=== PATIENT | male | born 1955 | race Caucasian/White ===

== ENCOUNTER → 2024-01-30 | Outpatient (CLI) | payer OTHER, MEDICAID, SELFPAY | END | disposition home or self-care (01) | LOC: SLDO 15:31 | PROVIDERS: PCP Family Medicine; Referring Provider Registered Nurse; Visit Provider Registered Nurse | DX: L03.115 Cellulitis of right lower limb (principal) | CPT/HCPCS: 87070; 87077; 87186; 87205 ==

== ENCOUNTER → 2024-02-12 | Outpatient (CLI) | payer OTHER, MEDICAID, SELFPAY | END | disposition home or self-care (01) | PROVIDERS: PCP Family Medicine; Referring Provider Registered Nurse; Visit Provider Student in an Organized Health Care Education/Training Program | DX: S91.104A Unspecified open wound of right lesser toe(s) without damage to nail, initial encounter (principal); X58.XXXA Exposure to other specified factors, initial encounter; L97.512 Non-pressure chronic ulcer of other part of right foot with fat layer exposed; I10 Essential (primary) hypertension; I73.9 Peripheral vascular disease, unspecified | CPT/HCPCS: 11042; 97597; 99213; A9270; G0463 ==

== ENCOUNTER → 2024-02-13 | Outpatient (CLI) | payer OTHER, MEDICAID, SELFPAY | END | disposition home or self-care (01) | LOC: SLDO 10:58 | PROVIDERS: Referring Provider Student in an Organized Health Care Education/Training Program; Visit Provider Student in an Organized Health Care Education/Training Program | DX: I70.235 Atherosclerosis of native arteries of right leg with ulceration of other part of foot (principal) | CPT/HCPCS: 87070; 87075; 87077; 87186; 87205 ==

== ENCOUNTER → 2024-02-20 | Outpatient (CLI) | payer OTHER, MEDICAID, SELFPAY | END | disposition home or self-care (01) | PROVIDERS: PCP Family Medicine; Referring Provider Family Medicine; Visit Provider Student in an Organized Health Care Education/Training Program | DX: S91.104A Unspecified open wound of right lesser toe(s) without damage to nail, initial encounter (principal); X58.XXXA Exposure to other specified factors, initial encounter; L97.512 Non-pressure chronic ulcer of other part of right foot with fat layer exposed; I10 Essential (primary) hypertension; I73.9 Peripheral vascular disease, unspecified | CPT/HCPCS: 11042; A9270 ==

== ENCOUNTER 2024-03-18 18:50 | Inpatient (IN) | payer OTHER, MEDICAID, MEDICARE, SELFPAY ==
[2024-03-18 20:00] VITALS: BP 144/69; PULSE 96; RESP 20; TEMP 36.8; O2SAT 96; BMI 21.7
--- NOTE | 2024-03-18 20:08 | XR_ITS ---
Examination: Foot, right, 3 views Technique: AP, oblique, lateral views foot, 3 views Date and time of exam: March 18, 20272014 hours INDICATIONS: Nonhealing wounds involving the toes several weeks FINDINGS: Advanced osteoarthritis first metatarsophalangeal joint No fracture No amrit cortical bone destruction Soft tissue swelling dorsum left foot IMPRESSION: No amrit cortical bone destruction, however, MRI foot without contrast follow up would best assess for early osteomyelitis as well as soft tissue infection
--- NOTE | 2024-03-18 20:10 | PD.EDRME ---
Rapid Medical Screening Exam RME Arrival date/time: 03/18/24 18:50 68-year-old male reports with complaints of wound check of right foot Chief Complaint: Wound Recheck / Suture Removal Time Seen by Provider: 03/18/24 19:06 Vital signs: Vital Signs Temperature 98.2 F 03/18/24 20:00 Pulse Rate 96 03/18/24 20:00 Respiratory Rate 20 03/18/24 20:00 Blood Pressure 144/69 H 03/18/24 20:00 Pulse Oximetry (%) 96 03/18/24 20:00 Oxygen Delivery Method Room Air 03/18/24 20:00
[2024-03-18 21:23] LABS: Basophils % (Auto) 0 % (0-2.5); Eosinophils # (Auto) 0.2 Thou/mm3 (0.0-0.5); Eosinophils % (Auto) 2 % (0-10); Hematocrit 35.6 % (41.0-53.0); Hemoglobin 12.9 g/dL (13.5-16.0); Immature Granulocytes % (Auto) 0 % (0-0); Immature Granulocytes Auto 0.04 Thou/mm3 (0.00-0.00); Lymphocytes # (Auto) 1.3 Thou/mm3 (1.0-4.8); Lymphocytes % (Auto) 10 % (10-50); Mean Corpuscular HGB Conc 36.2 g/dl (31.0-37.0); Mean Corpuscular Volume 83 fL (80-100); Monocytes # (Auto) 1.2 Thou/mm3 (0.0-0.8); Monocytes % (Auto) 9 % (0-12); Neutrophils # (Auto) 10.3 Thou/mm3 (1.8-7.7); Neutrophils % (Auto) 78 % (37-80); Nucleated Red Blood Cell % 0 /100 WBC (0); Platelet Count 171 Thou/mm3 (140-440); RDW Standard Deviation 39.9 fL (35.1-43.9); White Blood Count 13.2 Thou/mm3 (3.8-10.6)
[2024-03-18 21:41] LABS: Alanine Aminotransferase 45 U/L (10-49); Albumin, Serum 4.1 gm/dL (3.4-4.8); Albumin/Globulin Ratio 1.6 (1.2-2.2); Alkaline Phosphatase 104 U/L (46-116); Anion Gap 8 (7-16); Aspartate Amino Transferase 55 U/L (0-34); BUN/Creatinine Ratio 22 Ratio (12-20); Bilirubin,Total 0.8 mg/dL (0.3-1.2); Blood Urea Nitrogen 28 mg/dL (9-23); Carbon Dioxide 26.8 mMol/L (20.0-31.0); Chloride 86 mMol/L (98-107); Creatinine (Component) 1.3 mg/dL (0.6-1.3); Estimated Creatinine Clearance 45.8 mL/min (>60); Globulin 2.6 gm/dL (2.3-3.5); Glucose 97 mg/dL (74-106); Osmolality,Calculated 249 (275-295); Potassium 3.7 mMol/L (3.4-5.1); Sodium 121 mMol/L (136-145); Total Protein 6.7 gm/dL (5.7-8.2); eGFR 59 See Note
[2024-03-18 22:28] VITALS: BP 108/70; PULSE 91; RESP 17; TEMP 36.8; O2SAT 98
--- NOTE | 2024-03-18 22:32 | EDNOTE_ITS ---
ED Wound/Laceration-RME/HPI General Chief Complaint: Wound Recheck / Suture Removal Stated Complaint: WOUND CHECK Time Seen by Provider: 03/18/24 19:06 Arrival date/time: 03/18/24 18:50 RME / HPI RME / HPI narrative: 03/18/24 18:50 68-year-old male reports with complaints of wound check of right foot ------ Dr. Kingston?s Main ED Evaluation: 68yo male presents to the ED after being sent over by his wound care nurse. Patient states his at-home wound care nurse sent him over for evaluation due to my toes being a different color . Patient states he missed his wound care check last week, reporting today was the first time his wound dressing had been changed in almost 2 weeks. The wound care nurse noticed his toes were turning red at the top of his right foot, so he came in for evaluation. He denies any fever, chills or any other associated symptoms. Denies any alcohol or illicit drug use. No known allergies. Patient notes he's had this right foot wound since December of 2023. Related Data Home Medications ?Medication ?Instructions ?Recorded ?Confirmed albuterol sulfate 2.5 mg/0.5 mL 10 mg inhalation Q4H PRN 07/09/20 07/09/20 solution for nebulization alprazolam 0.5 mg tablet 0.5 mg PO QHS PRN 07/09/20 07/09/20 gabapentin 800 mg tablet 800 mg PO QDAY 07/09/20 07/09/20 losartan 25 mg tablet 25 mg PO QDAY 07/09/20 07/09/20 montelukast 10 mg tablet 10 mg PO QDAY 07/09/20 07/09/20 omeprazole 10 mg capsule,delayed 10 mg PO QDAY 07/09/20 07/09/20 release tizanidine 4 mg capsule 4 mg PO QHS 07/09/20 07/09/20 Allergies Allergy/AdvReac Type Severity Reaction Status Date / Time No Known Allergies Allergy Verified 03/18/24 18:54 Review of Systems Review of Systems Systems Reviewed: All systems reviewed, normal except as documented Narrative Review of Systems: Gen: No fever, no chills, no weight loss EYES: No discharge, no visual changes, no pain HEENT: No ear pain, no congestion, no sore throat PULM: No shortness of breath, no cough, no congestion CV: No chest pain, no dyspnea on exertion, no palpitations GI: No nausea, no vomiting, no diarrhea, no pain, no constipation : No frequency, no urgency, no dysuria Musc/skel: No joint pain, no back pain Skin: No rash. Warm and dry. + toes are a different color Psyc: No hallucinations, no depression Heme/Lymph: No easy bleeding or bruising tendencies Neuro: No weakness, no headache Past Medical History Past Medical History CARDIAC: Negative Congestive Heart Failure RESPIRATORY: Negative Chronic Obstructive Pulmonary Disease (COPD) GENITOURINARY: Negative Renal Disease ENDOCRINE: Negative Diabetes Mellitus Type 1 or Diabetes Mellitus Type 2 Social History SMOKING STATUS: Never smoker ED Exam Narrative Physical exam: GENERAL APPEARANCE: alert and oriented x 4, well-developed, well-nourished, no acute distress VITALS: All vitals were reviewed and the pulse ox is 98% on room air, which is normal according to my interpretation. HEENT: Normocephalic, atraumatic; pupils equal, round, reactive to light; EOMI; mucous membranes pink, moist; oropharynx clear NECK: Supple LUNGS: CTABL; no wheezes, no rales, no rhonchi HEART: Regular rate, regular rhythm; normal S1, S2; no murmurs ABDOMEN: non distended; normal BS; soft, no tenderness, no guarding, no rebound; no masses, no organomegaly, no hernia BACK: no CVA tenderness EXTREMITIES: atraumatic; no edema; cellulitis to the right foot; necrosis to the distal portion of the right 2nd, 3rd, and 5th toes with proximal erythema, swelling, and hot to the touch; 2+ pitting edema bilaterally NEUROLOGIC: awake; alert and oriented x4; cranial nerves II-XII grossly intact; no focal sensory or motor deficits PSYCHIATRIC: appropriate mood and affect SKIN: warm, dry; no rashes Course Course Course Narrative: CXR is ordered for determining the etiology of cough. Quality Measures none Orders Category Date Time Status Architectural Technologist STAT Care 03/18/24 22:49 Active Continuous Pulse Oximetry STAT Care 03/18/24 22:49 Active EKG (ED ONLY) *Do not use* NOW Care 03/18/24 22:49 Completed In and Out Catheter X1PRN Care 03/18/24 22:49 Active Insert IV NOW Care 03/18/24 22:49 Active NPO STAT Care 03/18/24 22:49 Active Strict Intake and Output Routine Care 03/18/24 22:49 Ordered EKG (ED Only) Stat Exams 03/18/24 22:49 Ordered US arterial duplex LE RT Stat Exams 03/18/24 22:50 Taken XR chest 1V portable Stat Exams 03/18/24 22:49 Completed XR foot comp RT min 3V Stat Exams 03/18/24 20:08 Completed B-Type Natriuretic Peptide Stat Lab 03/18/24 23:00 Completed Blood Culture (Lab) Stat Lab 03/18/24 23:06 Received CBC Stat Lab 03/18/24 20:57 Completed CMP [Comprehensive Metabolic Panel] Stat Lab 03/18/24 20:57 Completed LDH (Lactate Dehydrogenase) Stat Lab 03/18/24 23:00 Completed Lactate (Lactic Acid) Stat Lab 03/18/24 23:00 Completed Lipase Stat Lab 03/18/24 23:00 Completed Magnesium Stat Lab 03/18/24 23:00 Completed Partial Thromboplastin Time Stat Lab 03/18/24 23:00 Completed Phosphorous Stat Lab 03/18/24 23:00 Completed Procalcitonin Stat Lab 03/18/24 23:00 Completed Prothrombin Time with INR Stat Lab 03/18/24 23:00 Completed Troponin I Stat Lab 03/18/24 23:00 Completed Urinalysis Stat Lab 03/18/24 23:32 Completed Urine Culture Stat Lab 03/18/24 23:33 Received Wound Culture and Gram Stain Stat Lab 03/18/24 23:25 Ordered Doxycycline Inj [Vibramycin Inj] 200 mg Med 03/18/24 22:54 Discontinued Sodium Chloride 0.9% 250 ml [Ns] 250 ml IV X1 Piper/Tazo 3.375 gm [Zosyn] Med 03/18/24 22:49 Discontinued 3.375 gm in 50 ml IV X1 Sodium Chloride 0.9% 1000 ml [Ns] 1,914 ml Med 03/18/24 22:49 Discontinued IV 1,914 mls/hr Vital Signs Vital signs: Vital Signs Temperature 98.2 F 03/18/24 20:00 Pulse Rate 96 03/18/24 20:00 Respiratory Rate 20 03/18/24 20:00 Blood Pressure 144/69 H 03/18/24 20:00 Pulse Oximetry (%) 96 03/18/24 20:00 Oxygen Delivery Method Room Air 03/18/24 20:00 Wound / Laceration MDM Narrative MDM Narrative:: Scribe Attestation: 03/18/24 - Maya Weller am scribing for and in the presence of Dr. Kingston. Patient data External records reviewed:: [facility] previous records (Per chart review, patient has no previous ED visits or admissions to this facility.) Clinical information provided by:: patient Social determinants that could affect healthcare access:: none Patient has the following chronic illnesses:: none How is presenting disease/condition affected by chronic disease/condition?: no chronic disease Evaluation data The following diagnostics were reviewed and interpreted by me:: lab results, radiology exam(s) and EKG tracing(s) Lab and/or radiology exams considered but not ordered:: none Interpretation Summary: WBC count is elevated at 13.2, Sodium is low at 121, BUN is 28, troponin is normal, according to my interpretation. EKG done at 0009, NSR, rate of 96, left axis deviation, no ectopy, Q waves in lead III, avF, V1-V3, no STEMI, according to my interpretation. ----- [facility] Report Signed Patient: PASHA HAMMOND [facility]. Record#: [id number] Birthdate: 1955 Age/Sex: 68 / M Location: [facility] Attending Dr: Ordering Physician: Mykel Rose PA-C Date of Service: 03/18/24 Procedure(s): XR foot comp RT min 3V Accession Number(s): [id number] cc: Geoff Mcdonald MD; Hayden Singh MD; Mykel Rose PA-C~ Examination: Foot, right, 3 views Technique: AP, oblique, lateral views foot, 3 views Date and time of exam: March 18, 2027 2015 hours INDICATIONS: Nonhealing wounds involving the toes several weeks FINDINGS: Advanced osteoarthritis first metatarsophalangeal joint No fracture No amrit cortical bone destruction Soft tissue swelling dorsum left foot IMPRESSION: No amrit cortical bone destruction, however, MRI foot without contrast follow up would best assess for early osteomyelitis as well as soft tissue infection Dictated By: Geoff Mcdonald MD Signed By: <Electronically signed by Geoff Mcdonald MD in OV> 03/18/24 2133 [facility] Report Signed Patient: PASHA HAMMOND [facility]. Record#: [id number] Birthdate: 1955 Age/Sex: 68 / M Location: [facility] Attending Dr: Ordering Physician: Edison Kingston MD Date of Service: 03/18/24 Procedure(s): XR chest 1V portable Accession Number(s): [id number] cc: Geoff Mcdonald MD; Hayden Singh MD; Edison Kingston MD~ Examination: AP chest single view TECHNIQUE: Upright AP portable chest single view March 18, 2024 11:10 PM Comparison January 24, 2012 INDICATIONS: Onset coughing today. FINDINGS: Normal heart size Atelectasis versus mild pneumonia right base obscuring detail right hemidiaphragm Mild elevation right hemidiaphragm Significant osteopenia IMPRESSION: Atelectasis versus early pneumonia right base, clinical correlation advised Dictated By: Geoff Mcdonald MD Signed By: <Electronically signed by Geoff Mcdonald MD in OV> 03/18/24 2353 ------ [facility] Preliminary Report Draft Patient: PASHA HAMMOND [facility]. Record#: [id number] Birthdate: 1955 Age/Sex: 68 / M Location: [facility] Attending Dr: Ordering Physician: Date of Service: Procedure(s): Accession Number(s): cc: ~ Right lower extremity arterial Doppler ultrasound. March 18, 2024 at 2343 hours Clinical history: Diabetic foot infection. No prior study is available for comparison. Findings: The common femoral, proximal, mid and distal superficial femoral and popliteal arteries demonstrate normal triphasic flow pattern, velocities and good color flow. The anterior tibial, posterior tibial, peroneal and dorsalis pedis arteries are also unremarkable. Impression: No hemodynamically significant stenosis in the right lower extremity arteries. Report Electronically Signed By: Hossein Del Rosario 03/19/2024 12:55:12 AM [EST] Medications / Prescriptions Medications or Prescriptions considered but not ordered:: none Medication administrations:: Medication Administration History Discontinued Medications Sodium Chloride (Ns) 1,914 mls @ 1,914 mls/hr 30 ml/kg infuse over 60 min (1914 ml) IV .Q1H ONE Stop: 03/18/24 23:48 Last Infusion: 03/19/24 00:10 Dose: Infused Documented By: Admin: 03/18/24 23:08 Dose: 1,914 mls/hr Documented By: NIXON Piperacillin/Tazobactam/Dextrose (Zosyn) 3.375 gm in 50 mls @ 100 mls/hr IV X1 ONE Stop: 03/18/24 23:18 Last Infusion: 03/18/24 23:56 Dose: Infused Documented By: Admin: 03/18/24 23:26 Dose: 100 mls/hr Documented By: NIXON Doxycycline Hyclate 200 mg/ (Sodium Chloride) 250 mls @ 125 mls/hr IV X1 ONE Stop: 03/19/24 00:53 Last Admin: 03/19/24 00:30 Dose: 125 mls/hr Documented By: NIXON see above Consultations Consultation(s) initiated? (list below): Yes Consultation #1 (Physician, Specialty, Details): Discussed case with [Dr. Esparza, attending Dr. Perera] from Hospitalist service regarding admission. Discussed patients ED course, exam findings, labs, and radiology results. The Hospitalist [agrees] to accept the patient for admission. Time: 00:57 Diagnosis Wound Differential Diagnosis: other (diabetic foot wound, cellulitis, necrotizing fasciitis, arterial insufficiency, ischemic foot) Most likely diagnosis given after review of the tests above:: see below Admission Indicated Admission indicated?: indicated Admission Request Was there a request for admission?: Yes Admission Attestation Admission request attestation: Discussed case with [] from Hospitalist service regarding admission. Discussed patients ED course, exam findings, labs, and radiology results. The Hospitalist [agrees,declines] to accept the patient for admission. Disposition Plan Disposition Plan: Admit Critical Care Time Critical Care Time Critical Care Time: Yes Total Critical Care Time (min.): 40 Attestation: The high probability of sudden, clinically significant deterioration in the patient?s condition required the highest level of my preparedness to intervene urgently. The services I provided to this patient were to treat and/or prevent clinically significant deterioration. Services included the following: chart data review, reviewing nursing notes and/or old charts, documentation time, datastage consultant collaboration regarding findings and treatment options, medication orders and management, direct patient care, vital sign assessments and ordering, interpreting and reviewing diagnostic studies and lab tests. Aggregate critical care time includes only time during which I was engaged in work directly related to the patient?s care, as described above, whether at bedside or elsewhere in the Emergency Department. It did not include time spent performing other reported procedures or the services of residents, students, nurses or physician assistants. Discharge Plan Plan Patient Disposition: Admit Acute Care w/in Hospital Prescriptions/Referrals Prescriptions/Med Rec: No Action alprazolam 0.5 mg tablet 0.5 mg PO QHS PRN gabapentin 800 mg tablet 800 mg PO QDAY tizanidine 4 mg capsule 4 mg PO QHS omeprazole 10 mg capsule,delayed release(DR/EC) 10 mg PO QDAY losartan 25 mg tablet 25 mg PO QDAY montelukast 10 mg tablet 10 mg PO QDAY albuterol sulfate 2.5 mg/0.5 mL solution for nebulization 10 mg inhalation Q4H PRN Referrals: Hayden Singh MD [Primary Care Provider] - In 1 week Problem List Clinical Impression: Diabetic foot infection, Cellulitis Patient/Caregiver Discharge Instructions Print Language: Malian Stand Alone Forms: [facility] Award Info., Patient Portal Info Letter
--- NOTE | 2024-03-18 22:49 | XR_ITS ---
Examination: AP chest single view TECHNIQUE: Upright AP portable chest single view March 18, 2024 11:10 PM Comparison January 24, 2012 INDICATIONS: Onset coughing today. FINDINGS: Normal heart size Atelectasis versus mild pneumonia right base obscuring detail right hemidiaphragm Mild elevation right hemidiaphragm Significant osteopenia IMPRESSION: Atelectasis versus early pneumonia right base, clinical correlation advised
--- NOTE | 2024-03-18 22:50 | XR_ITS ---
Examination: Arterial duplex lower extremity, right lower extremity unilateral Date and time of exam: March 18, 2024 at 2343 hours INDICATIONS: Infection involving the right foot and toes beginning one week ago, diagnoses diabetes Findings: Duplex sonographic imaging of the lower extremity arteries, left using B-mode/Cooney scale imaging and Doppler spectral analysis and color flow. Ankle brachial indices have been recorded. Left common femoral artery demonstrates biphasic flow. Left superficial femoral artery demonstrates monophasic flow. Left popliteal artery demonstrates monophasic flow. Left posterior tibial artery demonstrated monophasic flow. Left ankle/brachial index is 0.78. Impression: Severe peripheral obstructive arterial disease Consider correlation with CT abdominal aorta iliofemoral runoff
[2024-03-18] MEDS: SODIUM CHLORIDE 0.9% 1000 ML 1,914 ML 1914 ML IV (23:08)
[2024-03-18 23:18] LABS: Lactate (Lactic Acid) 1.2 mMol/L (0.4-2.0)
[2024-03-18] MEDS: PIPER/TAZO 3.375 GM 3.375 GM/50 ML BAG IV (23:26)
[2024-03-18 23:35] LABS: INR 0.9 (0.9-1.3); Partial Thromboplastin Time 27.5 Seconds (22.0-36.0); Prothrombin Time 10.4 Seconds (9.0-12.2)
[2024-03-18 23:39] LABS: B-Type Natriuretic Peptide 41 pg/mL (0-100)
[2024-03-18 23:47] LABS: Collection Type, Urine Clean Catch
[2024-03-18 23:49] LABS: Lipase 106 U/L (12-53); Magnesium 1.9 mg/dL (1.6-2.6); Phosphorous 3.7 mg/dL (2.4-5.1); Procalcitonin 0.23 ng/ml (0.0-0.49); Troponin I < 0.020 ng/mL (0.0-0.045)
[2024-03-18 23:54] LABS: Bilirubin,Urine Negative (Negative); Blood,Urine Negative (Negative); Clarity,Urine Clear (Clear/Hazy); Color,Urine Lt-Yellow (Lt Yel-Yel); Glucose, Urine Negative (Negative); Ketones,Urine Negative (Negative); Leukocyte Esterase,Urine Negative (Negative); Nitrite,Urine Negative (Negative); Protein,Urine Negative (Neg - Trace); RBC,Urine 4 /hpf (0-3); Specific Gravity,Urine 1.012 (1.001-1.035); Squamous Epithelial Cell,Urine < 1 /hpf (0-5); Urobilinogen,Urine Negative mg/dL (0.0-1.0); WBC,Urine 4 /hpf (0-5)
--- NOTE | 2024-03-18 23:59 | PC.NURSE ---
Ultrasound currently at bedside.
[2024-03-19] VITALS (9 sets, daily range): BP systolic 114–170; BP diastolic 70–101; PULSE 84–107; RESP 14–20; TEMP 36.3–36.9; O2SAT 95–100; BMI 20.8
--- NOTE | 2024-03-19 | XR_ITS ---
Examination: Venous duplex lower extremity sonogram, bilateral. Date and time of exam: March 19, 2024 0234 hours INDICATIONS: Cellulitis gangrene involving the toes of the right foot one week Technique: Multiple sonographic images of the deep venous system have been obtained. B-mode/2-D grayscale imaging of vascular structures and Doppler spectral analysis (waveforms) and color performed Both legs are examined. Findings: Deep venous systems do not demonstrate abnormal echogenicity. All visualized deep veins exhibit compressibility. All visualized deep veins exhibit augmentation. Impression: Negative for deep vein thrombosis
[2024-03-19 00:07] LABS: LDH (Lactate Dehydrogenase) 213 U/L (120-246)
[2024-03-19] MEDS: DOXYCYCLINE INJ 200 MG in SODIUM CHLORIDE 0.9% 250 ML 250 ML 125 MG IV (00:30)
--- NOTE | 2024-03-19 00:55 | PRELIM_ITS ---
Right lower extremity arterial Doppler ultrasound. March 18, 2024 at 2343 hoursClinical history: Di abetic foot infection.No prior study is available for comparison.Findings:The common femoral, proxima l, mid and distal superficial femoral and popliteal arteries demonstrate normal triphasic flow patter n, velocities and good color flow. The anterior tibial, posterior tibial, peroneal and dorsalis pedi s arteries are also unremarkable.Impression:No hemodynamically significant stenosis in the right lowe r extremity arteries. Report Electronically Signed By: Hossein Del Rosario 03/19/2024 12:55:12 AM [EST]
[2024-03-19 11:36] LABS: Basophils % (Auto) 0 % (0-2.5); Eosinophils # (Auto) 0.3 Thou/mm3 (0.0-0.5); Eosinophils % (Auto) 3 % (0-10); Hematocrit 35.2 % (41.0-53.0); Hemoglobin 12.3 g/dL (13.5-16.0); Immature Granulocytes % (Auto) 0 % (0-0); Immature Granulocytes Auto 0.03 Thou/mm3 (0.00-0.00); Lymphocytes # (Auto) 1.2 Thou/mm3 (1.0-4.8); Lymphocytes % (Auto) 13 % (10-50); Mean Corpuscular HGB Conc 34.9 g/dl (31.0-37.0); Mean Corpuscular Hemoglobin 29.1 pg (25.0-35.0); Mean Corpuscular Volume 83 fL (80-100); Monocytes % (Auto) 12 % (0-12); Neutrophils # (Auto) 6.2 Thou/mm3 (1.8-7.7); Neutrophils % (Auto) 72 % (37-80); Nucleated Red Blood Cell % 0 /100 WBC (0); Platelet Count 142 Thou/mm3 (140-440); RDW Standard Deviation 40.6 fL (35.1-43.9); Red Blood Count 4.23 Miln/mm3 (4.50-5.90); White Blood Count 8.7 Thou/mm3 (3.8-10.6)
--- NOTE | 2024-03-19 11:41 | XR_ITS ---
Examination: CTA abdominal aorta iliofemoral runoff. 2-D sagittal coronal reconstructions. 3-D reconstructions, vascular March 19, 2024 1658 hours INDICATIONS: Right foot nonhealing ulcer redness swelling and pain one month Technique: Multiple CTA images of the abdominal aorta iliofemoral runoff arterial vessels, 2.0 mm slice thickness, post intravenous administration 130 cc [id number] 2-D sagittal coronal reconstructions. 3-D reconstructions, vascular 3-D postprocessing, including vascular maximum intensity projection images, 3-D volume rendering Low dose protocols were performed. One or more of the following dose reduction techniques were used; automated exposure control, adjustment of the mA and/or KV according to patient size, use of iterative reconstruction technique. Findings: No visualized liver or splenic lesion No gallstones No pancreatic or adrenal mass No renal or ureteral calculi, no hydronephrosis No pericecal inflammatory change No bowel obstruction Moderately distended urinary bladder Enhancing anterior left prostate nodule, 10 mm Transverse prostate dimension 4.7 cm Heavy abdominal aortic calcification, no abdominal aortic aneurysm 30% stenosis origin celiac axis 60% stenosis origin left renal artery External iliac common femoral arteries intact 90% plus stenosis mid to distal right superficial femoral artery extending over a distance of 10 cm Additional multiple 90% plus stenoses in the distal right superficial femoral artery Popliteal artery 90% stenosis image 410 Occlusions proximal and mid right anterior tibial artery and no filling right anterior tibial artery distally Multiple high-grade occlusions proximal right posterior tibial and main continuation trunk as well as multiple stenoses high-grade in the mid and distal right posterior tibial artery Heavy calcification left superficial femoral artery, 70% stenosis distal left superficial femoral artery Attenuated left popliteal artery Occlusion proximal left anterior tibial artery short segment Occlusion distal third of the left anterior tibial artery Multiple significant stenoses in the left posterior tibial and main continuation trunk IMPRESSION: Severe occlusive arterial sclerotic disease involving the right superficial femoral artery right anterior tibial posterior tibial arteries as above 70% stenosis distal left superficial femoral artery with multiple occlusions in the left anterior tibial left posterior tibial arteries
[2024-03-19 11:42] LABS: Anion Gap 8 (7-16); BUN/Creatinine Ratio 25 Ratio (12-20); Blood Urea Nitrogen 25 mg/dL (9-23); Calcium 8.6 mg/dL (8.3-10.6); Carbon Dioxide 28.4 mMol/L (20.0-31.0); Chloride 95 mMol/L (98-107); Estimated Creatinine Clearance 59.5 mL/min (>60); Glucose 95 mg/dL (74-106); Osmolality,Calculated 267 (275-295); Potassium 3.5 mMol/L (3.4-5.1); Sodium 131 mMol/L (136-145); eGFR > 60 See Note
[2024-03-19 11:43] LABS: Glucose Estimated Average 103 mg/dL (80-131); Hemoglobin A1C 5.2 % Hgb (4.8-6.0)
[2024-03-19] MEDS: PIPER/TAZO 3.375 GM 50 ML IV ×3 (12:19→22:25)
[2024-03-19] MEDS: DOXYCYCLINE INJ 100 MG in SODIUM CHLORIDE 0.9% (P) 100 ML IV ×2 (13:18→20:58)
--- NOTE | 2024-03-19 17:34 | PD.RESPRO ---
Documentation for date of: 03/19/24 Subjective Subjective Interval history: The patient reported doing well this morning. He reported that his pain has been well-controlled. He denied any lightheadedness, dizziness, chest pain, SOB, abdominal pain, nausea or vomiting, fever or chills. Exam Vital Signs Temp Pulse Resp BP Pulse Ox O2 Del Method 97.5 F 95 14 167/101 H 99 Room Air 03/19/24 15:03 03/19/24 15:03 03/19/24 15:03 03/19/24 15:03 03/19/24 15:03 03/19/24 15:03 Narrative Exam General: Cooperative elderly gentleman, no acute distress, Alert and Oriented x 3 HEENT: Moist mucous membranes, oropharynx clear Neck: Supple, No masses, No JVD CVS: S1S2 Regular rate and rhythm, No murmurs, rubs or gallops Lungs: Clear to auscultation with no accessory use, no wheeze no rhonchi Abd: Soft, NT/ND, +BS, no organomegaly Ext: Right foot under clean dressing, partially able to visualize underlying blackish discoloration of second and third right toe, bilateral dorsalis pedis and posterior tibialis pulses unable to fill Skin: No rash Psych: Appropriate mood and affect Objective Labs 03/20/24 05:01 03/20/24 05:01 Labs: Laboratory Results - last 24 hr 03/18/24 03/18/24 03/18/24 20:57 23:00 23:32 WBC 13.2 H RBC 4.30 L Hgb 12.9 L Hct 35.6 L MCV 83 MCH 30.0 MCHC 36.2 RDW Std Deviation 39.9 Plt Count 171 Neut % (Auto) 78 Lymph % (Auto) 10 [place] % (Auto) 9 Eos % (Auto) 2 Baso % (Auto) 0 Neut # (Auto) 10.3 H Lymph # (Auto) 1.3 [place] # (Auto) 1.2 H Eos # (Auto) 0.2 Baso # (Auto) 0.0 Immature Gran # (Auto) 0.04 H Absolute Nucleated RBC 0.00 Immature Gran % 0 Nucleated RBC % 0 PT 10.4 INR 0.9 APTT 27.5 Sodium 121 L Potassium 3.7 Chloride 86 L Carbon Dioxide 26.8 Anion Gap 8 BUN 28 H Creatinine 1.3 Estim Creat Clear Calc 45.8 L eGFR 59 L BUN/Creatinine Ratio [address] Glucose [address] Glu mg/dL Hemoglobin A1c Calculated Osmolality 249 L Lactic Acid 1.2 Calcium 9.0 Corrected Calcium 9.0 Phosphorus 3.7 Magnesium 1.9 Total Bilirubin 0.8 AST 55 H ALT 45 Alkaline Phosphatase 104 Lactate Dehydrogenase 213 Troponin I < 0.020 B-Natriuretic Peptide 41 Total Protein 6.7 Albumin 4.1 Globulin 2.6 Albumin/Globulin Ratio 1.6 Lipase 106 H Procalcitonin 0.23 Ur Collection Type Clean Catch Urine Color Lt-Yellow Urine Clarity Clear Urine pH 6.0 Ur Specific [place] 1.012 Urine Protein Negative Urine Glucose (UA) Negative Urine Ketones Negative Urine Blood Negative Urine Nitrite Negative Urine Bilirubin Negative Urine Urobilinogen (Auto) Negative Ur Leukocyte Esterase Negative Urine RBC 4 H Urine WBC 4 Ur Squamous Epith Cells < 1 Urine Bacteria None 03/19/24 05:00 WBC 8.7 RBC 4.23 L Hgb 12.3 L Hct 35.2 L MCV 83 MCH 29.1 MCHC 34.9 RDW Std Deviation 40.6 Plt Count 142 Neut % (Auto) 72 Lymph % (Auto) 13 [place] % (Auto) 12 Eos % (Auto) 3 Baso % (Auto) 0 Neut # (Auto) 6.2 Lymph # (Auto) 1.2 [place] # (Auto) 1.0 H Eos # (Auto) 0.3 Baso # (Auto) 0.0 Immature Gran # (Auto) 0.03 H Absolute Nucleated RBC 0.00 Immature Gran % 0 Nucleated RBC % 0 PT INR APTT Sodium 131 L D Potassium 3.5 Chloride 95 L Carbon Dioxide 28.4 Anion Gap 8 BUN 25 H Creatinine 1.0 Estim Creat Clear Calc 59.5 L eGFR > 60 BUN/Creatinine Ratio 25 H Glucose [address] Glu mg/dL 103 Hemoglobin A1c 5.2 Calculated Osmolality 267 L Lactic Acid Calcium 8.6 Corrected Calcium Phosphorus Magnesium Total Bilirubin AST ALT Alkaline Phosphatase Lactate Dehydrogenase Troponin I B-Natriuretic Peptide Total Protein Albumin Globulin Albumin/Globulin Ratio Lipase Procalcitonin Ur Collection Type Urine Color Urine Clarity Urine pH Ur Specific [place] Urine Protein Urine Glucose (UA) Urine Ketones Urine Blood Urine Nitrite Urine Bilirubin Urine Urobilinogen (Auto) Ur Leukocyte Esterase Urine RBC Urine WBC Ur Squamous Epith Cells Urine Bacteria Quality Measures Quality Measures none Advance care planning discussed with:: patient Assessment & Plan Assessment Current Active Medications: Generic Name Dose Route Start Last Admin Trade Name Evin PRN Reason Stop Dose Admin Acetaminophen 650 mg 03/19/24 16:54 Acetaminophen 325 Mg Tablet PO 04/18/24 16:53 Q6H PRN Fever >100.4 Acetaminophen 650 mg 03/19/24 16:54 Acetaminophen 325 Mg Tablet PO 04/18/24 16:53 Q6H PRN PAIN SCALE 1-3 (mild Hydrocodone Bitart/Acetaminophen 1 tab 03/19/24 16:54 Hydrocodone/Apap 5/325 Tablet PO 03/24/24 16:53 Q4HR PRN PAIN SCALE 4-6 (Moderate Doxycycline Hyclate 100 mg/ 100 mls @ 100 mls/hr 03/19/24 09:30 03/19/24 14:18 Sodium Chloride IV 03/26/24 09:29 Infused BID ALEX Infusion Piperacillin/Tazobactam/Dextrose 50 mls @ 12.5 mls/hr 03/19/24 14:00 03/19/24 15:33 Zosyn IV 03/26/24 13:59 12.5 mls/hr Q8HR ALEX Administration Plan The patient is a 68-year-old gentleman with significant past medical history of hypertension and anxiety presented to ED on 03/18/2024 with chief complaint of worsening darkening of right second and third toe was found to have dry gangrene of right second and third toe. #Right second and third toe dry gangrene, and #Peripheral neuropathy 2/2 #Severe bilateral lower limb peripheral arterial disease Patient has history of hypertension, has been on losartan, and suspected to have peripheral neuropathy, patient denied any history of diabetes mellitus type 1 or type II Right foot x-ray was significant for no amrit cortical bone destruction, duplex scan lower extremity revealed severe peripheral obstructive disease, And venous duplex was negative for DVT. Abdomen CTA iliofemoral run taken, pending report -Wound care ordered -Surgery consultation done with Dr. Foley, [facility] -Continue with doxycycline and Zosyn 03/18/2024- -started on gabapentin 400 Mg daily at night, home dose 800 Mg daily -[place] 5mg as needed for pain -Follow-up on abdomen CTA iliofemoral run off #Hypoosmolar hypovolemic Hyponatremia, improving Likely 2/2 low PO intake in the setting of underlying condition -Received 2L bolus in the ED -F/u on Na level #Essential hypertension Patient on home medication lisinopril -Started on amlodipine 5 mg daily #Anxiety disorder -Started on home alprazolam 0.5 Mg daily at night as needed -Started on trazodone 100 Mg daily at night Health maintenance: Dispo: Admitted to [facility] for further management of rt 2nd and 3rd toe dry gangrene Diet: Cardiac diet, NPO after midnight DVT prophylaxis: SCD's Code: Full code The patient's management plan was discussed with my attending physician MD Favio Kyle MD, PGY2 Attending Provider Attestation/Addendum I reviewed labs, imaging, EKG, home medications and prior available records. Face to face evaluation was performed by me. I have personally examined the patient and discussed assessment and plan with the IM team. I reviewed the resident note and agree with the plan with exceptions as below. Gangrene of right foot Hyponatremia PAD Peripheral neuropathy Essential hypertension Started IV NS for hyponatremia. Sodium improved. Monitor BMP Continue Zosyn and doxycycline Trend WBC: Downtrending Wound care Obtain CT angio of the lower extremities with abdominal aorta Consulted surgery for possible I&D
[2024-03-19] MEDS: amLODIPine BESYLATE 5 MG TABLET PO (18:10)
[2024-03-19] MEDS: GABAPENTIN 100 MG CAPSULE 400 MG PO (18:10)
[2024-03-19] MEDS: traZODone HCL 50 MG TABLET 100 MG PO (20:58)
[2024-03-19] MEDS: HYDROcodone/APAP 5/325 TABLET 1 TAB PO (21:02)
[2024-03-19] MEDS: ALPRazoLAM 0.25 MG TABLET 0.5 MG PO (22:36)
[2024-03-20] VITALS (15 sets, daily range): BP systolic 91–176; BP diastolic 76–101; PULSE 78–98; RESP 14–98; TEMP 36.1–37.1; O2SAT 96–100
[2024-03-20] MEDS: LOSARTAN POTASSIUM 25 MG TABLET 50 MG PO (00:34)
[2024-03-20] MEDS: HYDROcodone/APAP 5/325 TABLET 1 TAB PO (06:17)
[2024-03-20] MEDS: PIPER/TAZO 3.375 GM 50 ML IV ×3 (06:17→21:47)
[2024-03-20 06:20] LABS: Basophils % (Auto) 0 % (0-2.5); Eosinophils # (Auto) 0.2 Thou/mm3 (0.0-0.5); Eosinophils % (Auto) 2 % (0-10); Hematocrit 35.1 % (41.0-53.0); Hemoglobin 12.3 g/dL (13.5-16.0); Immature Granulocytes % (Auto) 0 % (0-0); Immature Granulocytes Auto 0.03 Thou/mm3 (0.00-0.00); Lymphocytes # (Auto) 1.1 Thou/mm3 (1.0-4.8); Lymphocytes % (Auto) 10 % (10-50); Mean Corpuscular Hemoglobin 29.9 pg (25.0-35.0); Mean Corpuscular Volume 85 fL (80-100); Monocytes % (Auto) 9 % (0-12); Neutrophils # (Auto) 9.2 Thou/mm3 (1.8-7.7); Neutrophils % (Auto) 79 % (37-80); Nucleated Red Blood Cell % 0 /100 WBC (0); Platelet Count 141 Thou/mm3 (140-440); RDW Standard Deviation 42.4 fL (35.1-43.9); Red Blood Count 4.12 Miln/mm3 (4.50-5.90); White Blood Count 11.5 Thou/mm3 (3.8-10.6)
[2024-03-20 06:48] LABS: Alanine Aminotransferase 40 U/L (10-49); Albumin, Serum 3.7 gm/dL (3.4-4.8); Albumin/Globulin Ratio 1.5 (1.2-2.2); Alkaline Phosphatase 83 U/L (46-116); Anion Gap 10 (7-16); Aspartate Amino Transferase 43 U/L (0-34); BUN/Creatinine Ratio 19 Ratio (12-20); Bilirubin,Total 1.3 mg/dL (0.3-1.2); Blood Urea Nitrogen 13 mg/dL (9-23); Calcium (Corrected) 9.2 mg/dL (8.5-10.1); Carbon Dioxide 27.3 mMol/L (20.0-31.0); Chloride 95 mMol/L (98-107); Creatinine (Component) 0.7 mg/dL (0.6-1.3); Estimated Creatinine Clearance 81.4 mL/min (>60); Globulin 2.5 gm/dL (2.3-3.5); Glucose 89 mg/dL (74-106); Magnesium 1.6 mg/dL (1.6-2.6); Osmolality,Calculated 263 (275-295); Phosphorous 2.5 mg/dL (2.4-5.1); Potassium 3.7 mMol/L (3.4-5.1); Sodium 132 mMol/L (136-145); Thyroid Stimulating Hormone 1.12 uIU/mL (0.55-4.78); Total Protein 6.2 gm/dL (5.7-8.2); eGFR > 60 See Note
[2024-03-20 07:05] LABS: Cholesterol 142 mg/dL (132-200); HDL Cholesterol 48 mg/dL (40-60); LDL Cholesterol,Calculated 82 mg/dL (0-130); Triglycerides 60 mg/dL (30-150)
[2024-03-20] MEDS: GABAPENTIN 100 MG CAPSULE 400 MG PO (09:09)
[2024-03-20] MEDS: DOXYCYCLINE INJ 100 MG in SODIUM CHLORIDE 0.9% (P) 100 ML IV ×2 (09:10→21:22)
[2024-03-20] MEDS: amLODIPine BESYLATE 5 MG TABLET PO (09:10)
--- NOTE | 2024-03-20 09:49 | ESPR_ITS ---
Documentation for date of: 03/20/24 Subjective Subjective Interval history: Patient was seen at bedside this morning. No overnight events. Patient is abdomen CTA runoff showed severe peripheral artery disease with right lower extremity having occlusion of 90% on the superficial femoral artery as well as the popliteal artery. Spoke with general surgeon was given see the patient today. Exam Vital Signs Temp Pulse Resp BP Pulse Ox O2 Del Method 97.0 F 97 18 136/90 H 100 Room Air 03/20/24 08:00 03/20/24 09:10 03/20/24 08:00 03/20/24 09:10 03/20/24 08:00 03/20/24 08:00 Narrative Exam General: A/O x3, no acute distress, thin Eyes: PERRL, EOMI. Anicteric, vision grossly intact. Ears: No ear pain, no ear discharge, Hearing grossly intact. Nose: No nasal discharge. Mouth/Throat: Moist mucous membranes, no redness, no lesions. Neck: Neck supple, non-tender, no cervical lymphadenopathy. Lungs: Clear BARBARA to auscultation and percussion, No accessory muscle use. Cardio: Normal S1/S2, regular rhythm, no murmurs, no JVD or carotid bruits. Abdomen: Soft, non-tender, no palpable masses, peristalsis present, no guarding or rebound. Extremities: Symmetrical, no significant deformities, no peripheral edema , non-tender, peripheral pulses presents. R foot wrapped in clean dressing. Skin: No rashes, no lesions, warm to touch. Neuro: No focal neurological deficits. motor and sensory intact Psych: Cooperative, appropriate mood and effect. Constitutional Comments: General: A/O x3, no acute distress, well-nourished, well-developed Eyes: PERRL, EOMI. Anicteric, vision grossly intact. Ears: No ear pain, no ear discharge, Hearing grossly intact. Nose: No nasal discharge. Mouth/Throat: Moist mucous membranes, no redness, no lesions. Neck: Neck supple, non-tender, no cervical lymphadenopathy. Lungs: Clear BARBARA to auscultation and percussion, No accessory muscle use. Cardio: Normal S1/S2, regular rhythm, no murmurs, no JVD or carotid bruits. Abdomen: Soft, non-tender, no palpable masses, peristalsis present, no guarding or rebound. Extremities: Symmetrical, no significant deformities, no peripheral edema , non-tender, peripheral pulses presents. Skin: No rashes, no lesions, warm to touch. Neuro: No focal neurological deficits. Psych: Cooperative, appropriate mood and effect. Objective Labs 03/20/24 05:01 03/20/24 05:01 Labs: Laboratory Results - last 24 hr 03/19/24 03/20/24 05:00 05:01 WBC 8.7 11.5 H RBC 4.23 L 4.12 L Hgb 12.3 L 12.3 L Hct 35.2 L 35.1 L MCV 83 85 MCH 29.1 29.9 MCHC 34.9 35.0 RDW Std Deviation 40.6 42.4 Plt Count 142 141 Neut % (Auto) 72 79 Lymph % (Auto) 13 10 [place] % (Auto) 12 9 Eos % (Auto) 3 2 Baso % (Auto) 0 0 Neut # (Auto) 6.2 9.2 H Lymph # (Auto) 1.2 1.1 [place] # (Auto) 1.0 H 1.0 H Eos # (Auto) 0.3 0.2 Baso # (Auto) 0.0 0.0 Immature Gran # (Auto) 0.03 H 0.03 H Absolute Nucleated RBC 0.00 0.00 Immature Gran % 0 0 Nucleated RBC % 0 0 Sodium 131 L D 132 L Potassium 3.5 3.7 Chloride 95 L 95 L Carbon Dioxide 28.4 27.3 Anion Gap 8 10 BUN 25 H 13 Creatinine 1.0 0.7 Estim Creat Clear Calc 59.5 L 81.4 eGFR > 60 > 60 BUN/Creatinine Ratio 25 H 19 Glucose [address] Glu mg/dL 103 Hemoglobin A1c 5.2 Calculated Osmolality 267 L 263 L Calcium 8.6 9.0 Corrected Calcium 9.2 Phosphorus 2.5 Magnesium 1.6 Total Bilirubin 1.3 H D AST 43 H ALT 40 Alkaline Phosphatase 83 D Total Protein 6.2 Albumin 3.7 Globulin 2.5 Albumin/Globulin Ratio 1.5 Triglycerides 60 Cholesterol 142 LDL Cholesterol, Calc 82 HDL Cholesterol 48 Cholesterol/HDL Ratio 3.0 L TSH 1.12 Quality Measures Quality Measures none Advance care planning discussed with:: patient Assessment & Plan Assessment Current Active Medications: Generic Name Dose Route Start Last Admin Trade Name Freq PRN Reason Stop Dose Admin Acetaminophen 650 mg 03/19/24 16:54 Acetaminophen 325 Mg Tablet PO 04/18/24 16:53 Q6H PRN Fever >100.4 Acetaminophen 650 mg 03/19/24 16:54 Acetaminophen 325 Mg Tablet PO 04/18/24 16:53 Q6H PRN PAIN SCALE 1-3 (mild Hydrocodone Bitart/Acetaminophen 1 tab 03/19/24 16:54 03/20/24 06:17 Hydrocodone/Apap 5/325 Tablet PO 03/24/24 16:53 1 tab Q4HR PRN Administration PAIN SCALE 4-6 (Moderate Alprazolam 0.5 mg 03/19/24 17:57 03/19/24 22:36 Alprazolam 0.25 Mg Tablet PO 03/24/24 20:59 0.5 mg HS PRN Administration Anxiety Amlodipine Besylate 5 mg 03/19/24 18:00 03/20/24 09:10 Amlodipine Besylate 5 Mg Tablet PO 04/18/24 17:59 5 mg QDAY ALEX Administration Gabapentin 400 mg 03/19/24 18:00 03/20/24 09:09 Gabapentin 100 Mg Capsule PO 04/18/24 17:59 400 mg QDAY ALEX Administration Doxycycline Hyclate 100 mg/ 100 mls @ 100 mls/hr 03/19/24 09:30 03/20/24 09:10 Sodium Chloride IV 03/26/24 09:29 100 mls/hr BID ALEX Administration Piperacillin/Tazobactam/Dextrose 50 mls @ 12.5 mls/hr 03/19/24 14:00 03/20/24 06:17 Zosyn IV 03/26/24 13:59 12.5 mls/hr Q8HR ALEX Administration Trazodone HCl 100 mg 03/19/24 21:00 03/19/24 20:58 Trazodone Hcl 50 Mg Tablet PO 04/18/24 20:59 100 mg HS ALEX Administration Plan 68-year-old male with past medical history of hypertension and anxiety was admitted on 03/18/2024 due to right second and third toe dry gangrene. #Right second and third toe dry gangrene likely secondary to #Severe peripheral artery disease #Leukocytosis ? Patient initially came in due to discoloration of his toes. Initial foot x-ray did not show any fractures ?Arterial duplex showed severe PAD ?Abdomen CTA runoff showed severe PAD with 90% stenosis of right femoral as well as popliteal artery stenosis. ? Culture from right foot wound grew GNR's ? Blood cultures have been negative in the first 24 hours ? Patient has leukocytosis of 11.5 today Plan: ? Continue doxycycline and Zosyn [03/18/2024?] ? Official blood cultures pending ? General Surgery consulted, pursue recommendations ? Will continue to monitor #Hypoosmolar hyponatremia ? Patient came in with sodium of 121 ? Received IV fluids in the ER ? Sodium today 132 Plan: ? Will continue to monitor #Normocytic hypochromic anemia ? Hemoglobin on admission was 12.9 and currently 12.3 ? Could be due to hemodilution versus iron deficiency Plan: ?Order ferritin levels ? Will transfuse hemoglobin less than 7 ? Will continue to monitor #Hx of hypertension ? Restart patient's amlodipine 5 mg daily #Hx of anxiety ? Restart patient's trazodone 100 mg at bedtime Disposition: Patient seen in med surg for R 2/3 toe gangrene pending General surgery recs and continue Abx. Diet: NPO GI prophylaxis: not indicated DVT prophylaxis: SCDs Code: Full code Case disclosed with Attending Dr. Hess and My senior Dr. Petersen PGY2. Shreyas Garcia PGY1 Senior Resident Attestation: The patient's CTA abdomen iliofemoral runoff was significant for severe PAD with 90% stenosis of the right femoral as well as popliteal artery stenosis, and culture growing from wound was and GNR's. Dr. Jean general surgeon will be proceeding with amputation of the right second and third toe. We will follow-up on Dr. Jean's recommendations. Will continue the patient on doxycycline and Zosyn for now. I discussed with and supervised the ad operations intern physician involved in the care of this patient. I personally saw and examined the patient and discussed the assessment and plan with the entire medicine team, including my attending. I agree with the assessment and plan as documented above. Favio Petersen MD PGY2 Internal Medicine Attending Provider Attestation/Addendum I reviewed labs, imaging, EKG, home medications and prior available records. Face to face evaluation was performed by me. I have personally examined the patient and discussed assessment and plan with the IM team. I reviewed the resident note and agree with the plan with exceptions as below. Gangrene of right foot Hyponatremia PAD Peripheral neuropathy Essential hypertension Status post IV NS for hyponatremia. Sodium improved. Monitor BMP Continue Zosyn and doxycycline Trend WBC: Downtrending Wound care Obtain CT angio of the lower extremities with abdominal aorta: Showed severe PAD Consulted surgery: Will plan for OR today. Keep the patient n.p.o. possible amputation. Patient is aware of this possibility
[2024-03-20 10:10] LABS: Ferritin 244 ng/mL (10.5-307.3)
--- NOTE | 2024-03-20 15:04 | PD.SURCONS ---
HPI Consult details Consult date: 03/20/24 Reason for consultation narrative: The patient was seen in consultation because of gangrene involving multiple toes right foot History of present illness: History of present illness revealed that the patient has had this problem for a month. He was treated as an outpatient but failed and because of the gangrene he was admitted to the hospital Past Medical History Past Medical History CARDIAC: Negative Cardiac Disorders or Congestive Heart Failure RESPIRATORY: Positive Asthma; Negative Chronic Obstructive Pulmonary Disease (COPD) GENITOURINARY: Negative Renal Disease ENDOCRINE: Negative Diabetes Mellitus Type 1 or Diabetes Mellitus Type 2 HEMATOLOGIC: Negative Sickle Cell Disease Social History SMOKING STATUS: Never smoker Meds Home Medications and Allergies Home Medications ?Medication ?Instructions ?Recorded ?Confirmed ?Type albuterol sulfate 2.5 mg/0.5 mL 10 mg inhalation Q4H PRN Pain 07/09/20 03/19/24 History solution for nebulization alprazolam 0.5 mg tablet 0.5 mg PO QHS PRN Pain, Severe 07/09/20 03/19/24 History gabapentin 800 mg tablet 800 mg PO QDAY 07/09/20 03/19/24 History losartan 25 mg tablet 25 mg PO QDAY 07/09/20 03/19/24 History montelukast 10 mg tablet 10 mg PO QDAY 07/09/20 03/19/24 History hydrocodone 7.5 mg-acetaminophen 7.5 tab PO [id number] PRN Pain 03/19/24 03/19/24 History 325 mg tablet trazodone 100 mg tablet 100 mg ONCE PM 03/19/24 03/19/24 History Allergies Allergy/AdvReac Type Severity Reaction Status Date / Time No Known Allergies Allergy Verified 03/18/24 18:54 Exam Vital Signs Temp Pulse Resp BP Pulse Ox O2 Del Method 98.8 F 96 18 135/89 H 97 Room Air 03/20/24 12:00 03/20/24 12:00 03/20/24 12:00 03/20/24 12:00 03/20/24 12:00 03/20/24 12:00 Narrative Exam Physical examination revealed an elderly gentleman who appears older than his stated age of 68. He is 5 foot 6 inches tall weighing 129 pounds. His vital signs are normal. Routine Extremities Exam Comments: Examination of the foot on both sides showed ischemic changes. On the right side patient had some cellulitis over the dorsal aspect of the right foot. Patient has amrit gangrene of the second and third toes right foot and probably portion of the fifth toe. The fourth toe is spared. The great toe is also showing ischemic changes but no amrit gangrene. Pedal pulses are not palpable on this patient Results Results: Laboratory Laboratory Narrative: Laboratory results are within normal limits Results: Imaging Imaging narrative: Patient had a CTA which showed severe occlusive disease over the peripheral arteries Assessment & Plan Additional Assessment Additional comments: Impression: Gangrene multiple toes right foot Diabetes Advanced peripheral vascular disease Plan Plan: I do not know whether we can save this foot. However minimal we have to do is to amputation of all the toes start with. It is very unlikely but amputated and will heal. But I think getting rid of the gangrene is the first place that continue dressing as an outpatient. Thank you for an opportunity to see this unfortunate gentleman.
[2024-03-20] MEDS: LORazepam 2 MG/ML VIAL 1 MG IVP (15:32)
--- NOTE | 2024-03-20 15:58 | PC.SS ---
Patient is alert/oriented. Patient verified demographics. Patient was admitted for gangrene of right distal foot. Patient is from home and resides at [facility]. Patient resides alone. He is independent with ADL's. Patient has a walker at home. Patient states he needs a wheelchair. Patient states his p.c.p. ordered this and it's pending. Patient states he has been to the o/p wound clinic in the past. His last visit was in January. He was going once a week. He has no transportation. Patient uses [employer] transportation. Patient PCP: Dr. Juan Jose Singh. Last appt. was in November. Patient states his designated decision maker is his friend, Cassidy. Patient will need resources for healthcare options to switch his [employer] to a different managed Medicare in the future. Patient needs [facility] resources as well as transportation assistance. Patient states ideally he nadira like to d/c home with additional help but if he needs it he is open to SNF short term.
--- NOTE | 2024-03-20 17:05 | SUR.PHASEI ---
1705 Patient arrived to recovery resting comfortably in [facility], on oxygen 8L via oxy mask with an oral airway, breathing unlabored, vital signs stable, dressing intact to right foot; wet fluffs, kerlix, silk tape, no bleeding noted, lung sounds clear upon auscultation, bilateral radial pulses present when palpated, report received from Corine MORGAN and Geoff GARCIA
--- NOTE | 2024-03-20 17:06 | PD.SUROPNT ---
Date of Procedure 03/20/24 Pre Op Diagnosis Gangrene of multiple toes right foot Post Op Diagnosis Same Procedure Amputation of the second third and part of the fifth toe on the right foot Findings Patient is found to have the above toes completely gangrenous and therefore amputation was indicated Procedure Description After the patient was brought to the operating room general anesthesia was given. Then the right foot was washed with Betadine solution and draped in a sterile manner. Timeout was performed. Then I approached the 2nd-1st which is completely gangrenous. Retracting the great toe medially a racquet shaped incision was made over the base of the second toe and it was removed by dividing the proximal phalanx with a bone saw. Same thing was performed on the third toe. The fifth toe had gangrenous changes at the tip and I debrided the fifth toe and a partial amputation was performed of the distal phalanx. Then I shaved the necrotic tissue over the right big toe and wound was found to have absolutely no bleeding. Wound was washed with saline solution and dressed with wet-to-dry fluff. Patient tolerated procedure well Anesthesia other Pathology / specimen Other (Amputated second third and part of the fifth toe) Estimated Blood Loss 0 Surgeon Janine Harrison MD Surgical Staff Operation Date: 03/20/24 16:15 <No data on this case meets the specified criteria>
--- NOTE | 2024-03-20 17:55 | SUR.PHASEI ---
1753 Report given to Joann MORGAN, patient meets discharge criteria from recovery, awake and sitting up in [facility], on oxygen 3L via nasal cannula, breathing unlabored, vital signs stable, denies pain, dressing intact; no bleeding noted, denies nausea 1755 Patient transported via [facility] to room 369 without [employer].
[2024-03-20] MEDS: traZODone HCL 50 MG TABLET 100 MG PO (21:22)
[2024-03-21] VITALS (9 sets, daily range): BP systolic 91–159; BP diastolic 71–87; PULSE 70–109; RESP 16–94; TEMP 36.2–36.9; O2SAT 94–99; BMI 20.7
[2024-03-21] MEDS: ALPRazoLAM 0.25 MG TABLET 0.5 MG PO (03:38)
[2024-03-21] MEDS: HYDROcodone/APAP 5/325 TABLET 1 TAB PO ×3 (03:38→22:24)
[2024-03-21] MEDS: PIPER/TAZO 3.375 GM 50 ML IV ×3 (05:19→22:27)
[2024-03-21 06:22] LABS: Basophils % (Auto) 0 % (0-2.5); Eosinophils % (Auto) 0 % (0-10); Hematocrit 36.7 % (41.0-53.0); Hemoglobin 12.3 g/dL (13.5-16.0); Immature Granulocytes % (Auto) 1 % (0-0); Immature Granulocytes Auto 0.06 Thou/mm3 (0.00-0.00); Lymphocytes # (Auto) 0.8 Thou/mm3 (1.0-4.8); Lymphocytes % (Auto) 6 % (10-50); Mean Corpuscular HGB Conc 33.5 g/dl (31.0-37.0); Mean Corpuscular Hemoglobin 29.1 pg (25.0-35.0); Mean Corpuscular Volume 87 fL (80-100); Monocytes # (Auto) 0.9 Thou/mm3 (0.0-0.8); Monocytes % (Auto) 6 % (0-12); Neutrophils # (Auto) 11.5 Thou/mm3 (1.8-7.7); Neutrophils % (Auto) 87 % (37-80); Nucleated Red Blood Cell % 0 /100 WBC (0); Platelet Count 190 Thou/mm3 (140-440); RDW Standard Deviation 42.5 fL (35.1-43.9); Red Blood Count 4.22 Miln/mm3 (4.50-5.90); White Blood Count 13.3 Thou/mm3 (3.8-10.6)
[2024-03-21 06:44] LABS: Alanine Aminotransferase 34 U/L (10-49); Albumin/Globulin Ratio 1.4 (1.2-2.2); Alkaline Phosphatase 83 U/L (46-116); Anion Gap 9 (7-16); Aspartate Amino Transferase 23 U/L (0-34); BUN/Creatinine Ratio 16 Ratio (12-20); Blood Urea Nitrogen 13 mg/dL (9-23); Calcium 9.4 mg/dL (8.3-10.6); Calcium (Corrected) 9.4 mg/dL (8.5-10.1); Carbon Dioxide 29.9 mMol/L (20.0-31.0); Chloride 92 mMol/L (98-107); Creatinine (Component) 0.8 mg/dL (0.6-1.3); Estimated Creatinine Clearance 71.2 mL/min (>60); Globulin 2.9 gm/dL (2.3-3.5); Glucose 131 mg/dL (74-106); Magnesium 1.6 mg/dL (1.6-2.6); Osmolality,Calculated 264 (275-295); Phosphorous 3.2 mg/dL (2.4-5.1); Sodium 131 mMol/L (136-145); Total Protein 6.9 gm/dL (5.7-8.2); eGFR > 60 See Note
[2024-03-21] MEDS: amLODIPine BESYLATE 5 MG TABLET PO (08:15)
[2024-03-21] MEDS: GABAPENTIN 100 MG CAPSULE 400 MG PO (08:15)
[2024-03-21] MEDS: DOXYCYCLINE INJ 100 MG in SODIUM CHLORIDE 0.9% (P) 100 ML IV ×2 (08:15→21:17)
[2024-03-21] MEDS: Magnesium Sulfate 4 GM Ivpb 4 GM/50 ML BAG IV (10:55)
--- NOTE | 2024-03-21 13:33 | PD.RESPRO ---
Documentation for date of: 03/21/24 Subjective Subjective Interval history: Patient was seen at bedside this morning. No overnight events. Patient underwent amputation of second, third, and part of the fifth toe of the right foot. Surgeon stated that patient had no bleeding from the wound during amputation. Patient had a fall this morning in which she stated he was at the edge of the bed and he went to place something on the table beside did and when he made force on his right foot he slipped and ended up on the floor, but he denied hitting his head or having any pain at this time. No other complaints at this time. Exam Vital Signs Temp Pulse Resp BP Pulse Ox O2 Del Method O2 Flow Rate 97.1 F 70 16 133/85 H 99 Room Air 3 03/21/24 08:00 03/21/24 09:15 03/21/24 09:15 03/21/24 08:15 03/21/24 08:00 03/21/24 08:00 03/20/24 17:50 Narrative Exam General: A/O x3, no acute distress, thin Eyes: PERRL, EOMI. Anicteric, vision grossly intact. Ears: No ear pain, no ear discharge, Hearing grossly intact. Nose: No nasal discharge. Mouth/Throat: Moist mucous membranes, no redness, no lesions. Neck: Neck supple, non-tender, no cervical lymphadenopathy. Lungs: Clear BARBARA to auscultation and percussion, No accessory muscle use. Cardio: Normal S1/S2, regular rhythm, no murmurs, no JVD or carotid bruits. Abdomen: Soft, non-tender, no palpable masses, peristalsis present, no guarding or rebound. Extremities: Symmetrical, no significant deformities, no peripheral edema , non-tender, peripheral pulses presents. R foot wrapped in clean dressing with some mild swelling. Skin: No rashes, no lesions, warm to touch. Neuro: No focal neurological deficits. motor and sensory intact Psych: Cooperative, appropriate mood and effect. Objective Labs 03/21/24 05:20 03/21/24 05:20 Labs: Laboratory Results - last 24 hr 03/21/24 05:20 WBC 13.3 H RBC 4.22 L Hgb 12.3 L Hct 36.7 L MCV 87 MCH 29.1 MCHC 33.5 RDW Std Deviation 42.5 Plt Count 190 D Neut % (Auto) 87 H Lymph % (Auto) 6 L [place] % (Auto) 6 Eos % (Auto) 0 Baso % (Auto) 0 Neut # (Auto) 11.5 H Lymph # (Auto) 0.8 L [place] # (Auto) 0.9 H Eos # (Auto) 0.0 Baso # (Auto) 0.0 Immature Gran # (Auto) 0.06 H Absolute Nucleated RBC 0.00 Immature Gran % 1 H Nucleated RBC % 0 Sodium 131 L Potassium 4.0 Chloride 92 L Carbon Dioxide 29.9 Anion Gap 9 BUN 13 Creatinine 0.8 Estim Creat Clear Calc 71.2 eGFR > 60 BUN/Creatinine Ratio 16 Glucose 131 H Calculated Osmolality 264 L Calcium 9.4 Corrected Calcium 9.4 Phosphorus 3.2 Magnesium 1.6 Total Bilirubin 1.0 AST 23 ALT 34 Alkaline Phosphatase 83 Total Protein 6.9 Albumin 4.0 Globulin 2.9 Albumin/Globulin Ratio 1.4 Quality Measures Quality Measures none Advance care planning discussed with:: patient Assessment & Plan Assessment Current Active Medications: Generic Name Dose Route Start Last Admin Trade Name Freq PRN Reason Stop Dose Admin Acetaminophen 650 mg 03/19/24 16:54 Acetaminophen 325 Mg Tablet PO 04/18/24 16:53 Q6H PRN Fever >100.4 Acetaminophen 650 mg 03/19/24 16:54 Acetaminophen 325 Mg Tablet PO 04/18/24 16:53 Q6H PRN PAIN SCALE 1-3 (mild Hydrocodone Bitart/Acetaminophen 1 tab 03/19/24 16:54 03/21/24 03:38 Hydrocodone/Apap 5/325 Tablet PO 03/24/24 16:53 1 tab Q4HR PRN Administration PAIN SCALE 4-6 (Moderate Albuterol/Ipratropium 3 ml 03/20/24 16:32 Albuterol/Ipratropium (Duoneb) Rt Stephany 3 Ml Nebu INH 04/19/24 16:31 Q4HRRT PRN WHEEZING Alprazolam 0.5 mg 03/19/24 17:57 03/21/24 03:38 Alprazolam 0.25 Mg Tablet PO 03/24/24 20:59 0.5 mg HS PRN Administration Anxiety Amlodipine Besylate 5 mg 03/19/24 18:00 03/21/24 08:15 Amlodipine Besylate 5 Mg Tablet PO 04/18/24 17:59 5 mg QDAY ALEX Administration Gabapentin 400 mg 03/19/24 18:00 03/21/24 08:15 Gabapentin 100 Mg Capsule PO 04/18/24 17:59 400 mg QDAY ALEX Administration Doxycycline Hyclate 100 mg/ 100 mls @ 100 mls/hr 03/19/24 09:30 03/21/24 08:15 Sodium Chloride IV 03/26/24 09:29 100 mls/hr BID ALEX Administration Piperacillin/Tazobactam/Dextrose 50 mls @ 12.5 mls/hr 03/19/24 14:00 03/21/24 05:19 Zosyn IV 03/26/24 13:59 12.5 mls/hr Q8HR ALEX Administration Trazodone HCl 100 mg 03/19/24 21:00 03/20/24 21:22 Trazodone Hcl 50 Mg Tablet PO 04/18/24 20:59 100 mg HS ALEX Administration Plan 68-year-old male with past medical history of hypertension and anxiety was admitted on 03/18/2024 due to right second and third toe dry gangrene. #Right second and third toe dry gangrene, s/p amputation 2/3/partial 5 toe #Severe peripheral artery disease #Leukocytosis ? Patient initially came in due to discoloration of his toes. - Initial foot x-ray did not show any fractures ?Arterial duplex showed severe PAD ?Abdomen CTA runoff showed severe PAD with 90% stenosis of right femoral as well as popliteal artery stenosis. ? Culture from right foot wound grew GNR's ? Blood cultures have been negative in the first 24 hours ? Patient has leukocytosis of 13.3 today likely reactive - Patient underwent amputation of second, third, and part of the fifth toe of the right foot on 03/20/2024 - Blood Cx negative -Wound Cx grew GNR Plan: ? Continue doxycycline and Zosyn [03/18/2024?] -Referred to wound care ? General Surgery consulted, pursue recommendations ? Will continue to monitor #Hypoosmolar hyponatremia ? Patient came in with sodium of 121 ? Received IV fluids in the ER ? Sodium today 131 Plan: ? Will continue to monitor #Normocytic hypochromic anemia ? Hemoglobin on admission was 12.9 and currently 12.3 ? Could be due to hemodilution versus iron deficiency Plan: ?Order ferritin levels ? Will transfuse hemoglobin less than 7 ? Will continue to monitor #Hx of hypertension ? Restart patient's amlodipine 5 mg daily #Hx of anxiety ? Restart patient's trazodone 100 mg at bedtime Disposition: Patient seen in med surg for R 2/3 toe gangrene s/p amputation of 2/3/partial 5 toe, continue Abx. Diet:Carb consistent GI prophylaxis: not indicated DVT prophylaxis: SCDs Code: Full code Case disclosed with Attending Dr. Hess and my senior Dr. Petersen PGY2 Shreyas Garcia PGY1 Senior Resident Attestation: The patient is a 68-year-old male with significant past medical history of hypertension and anxiety presented with blackish discoloration of right second and fourth toe was found to have dry gangrene of right second and third toe. The patient underwent amputation of right second and third toe with partial amputation of fifth toe by general surgeon Dr. Jean yesterday. There was no blood loss during the amputation, there is high suspicion that the patient may need BKA. We will continue to monitor him patient's surgical site for couple of days and plan further. In the meantime, we will continue with Zosyn and doxycycline. I discussed with and supervised the financial services intern physician involved in the care of this patient. I personally saw and examined the patient and discussed the assessment and plan with the entire medicine team, including my attending. I agree with the assessment and plan as documented above. Favio Petersen MD PGY2 Attending Provider Attestation/Addendum I reviewed labs, imaging, EKG, home medications and prior available records. Face to face evaluation was performed by me. I have personally examined the patient and discussed assessment and plan with the IM team. I reviewed the resident note and agree with the plan with exceptions as below. Gangrene of right foot Hyponatremia PAD Peripheral neuropathy Essential hypertension S/p amputation of second, third, and partial fifth toe of the right foot. Per surgery, there is no bleeding which is indicating severe arterial blockage. May need below the knee amputation. Will watch the patient for the next few days and will decide on further amputation later. Continue Zosyn and doxycycline as we cannot verify controlling the infection source Trend WBC: Downtrending Wound care Obtain CT angio of the lower extremities with abdominal aorta: Showed severe PAD Status post IV NS for hyponatremia. Sodium improved. Monitor BMP
[2024-03-21] MEDS: traZODone HCL 50 MG TABLET 100 MG PO (21:19)
[2024-03-22] VITALS (8 sets, daily range): BP systolic 108–165; BP diastolic 67–100; PULSE 72–99; RESP 16–92; TEMP 36–36.7; O2SAT 93–98
[2024-03-22] MEDS: PIPER/TAZO 3.375 GM 50 ML IV ×3 (05:12→21:01)
[2024-03-22] MEDS: HYDROcodone/APAP 5/325 TABLET 1 TAB PO ×3 (05:16→21:06)
[2024-03-22 05:34] LABS: Basophils % (Auto) 0 % (0-2.5); Eosinophils # (Auto) 0.3 Thou/mm3 (0.0-0.5); Eosinophils % (Auto) 3 % (0-10); Hematocrit 32.9 % (41.0-53.0); Hemoglobin 11.1 g/dL (13.5-16.0); Immature Granulocytes % (Auto) 1 % (0-0); Immature Granulocytes Auto 0.05 Thou/mm3 (0.00-0.00); Lymphocytes # (Auto) 2.2 Thou/mm3 (1.0-4.8); Lymphocytes % (Auto) 21 % (10-50); Mean Corpuscular HGB Conc 33.7 g/dl (31.0-37.0); Mean Corpuscular Hemoglobin 29.7 pg (25.0-35.0); Mean Corpuscular Volume 88 fL (80-100); Monocytes # (Auto) 1.1 Thou/mm3 (0.0-0.8); Monocytes % (Auto) 11 % (0-12); Neutrophils # (Auto) 6.6 Thou/mm3 (1.8-7.7); Neutrophils % (Auto) 64 % (37-80); Nucleated Red Blood Cell % 0 /100 WBC (0); Platelet Count 166 Thou/mm3 (140-440); RDW Standard Deviation 42.9 fL (35.1-43.9); Red Blood Count 3.74 Miln/mm3 (4.50-5.90); White Blood Count 10.3 Thou/mm3 (3.8-10.6)
[2024-03-22 06:15] LABS: Alanine Aminotransferase 28 U/L (10-49); Albumin, Serum 3.6 gm/dL (3.4-4.8); Albumin/Globulin Ratio 1.4 (1.2-2.2); Alkaline Phosphatase 64 U/L (46-116); Anion Gap 7 (7-16); Aspartate Amino Transferase 18 U/L (0-34); BUN/Creatinine Ratio 24 Ratio (12-20); Bilirubin,Total 0.5 mg/dL (0.3-1.2); Blood Urea Nitrogen 22 mg/dL (9-23); Calcium 8.7 mg/dL (8.3-10.6); Carbon Dioxide 32.4 mMol/L (20.0-31.0); Chloride 97 mMol/L (98-107); Creatinine (Component) 0.9 mg/dL (0.6-1.3); Estimated Creatinine Clearance 63.3 mL/min (>60); Globulin 2.5 gm/dL (2.3-3.5); Glucose 104 mg/dL (74-106); Magnesium 1.8 mg/dL (1.6-2.6); Osmolality,Calculated 275 (275-295); Phosphorous 3.6 mg/dL (2.4-5.1); Potassium 3.7 mMol/L (3.4-5.1); Sodium 136 mMol/L (136-145); Total Protein 6.1 gm/dL (5.7-8.2); eGFR > 60 See Note
[2024-03-22] MEDS: POTASSIUM CHLORIDE 20 mEq TABCR 40 MEQ PO (09:32)
[2024-03-22] MEDS: ALPRazoLAM 0.25 MG TABLET 0.5 MG PO (09:32)
[2024-03-22] MEDS: GABAPENTIN 100 MG CAPSULE 400 MG PO (09:32)
[2024-03-22] MEDS: amLODIPine BESYLATE 5 MG TABLET PO (09:32)
[2024-03-22] MEDS: Magnesium Sulfate 4 GM Ivpb 4 GM/50 ML BAG IV (09:33)
[2024-03-22] MEDS: DOXYCYCLINE INJ 100 MG in SODIUM CHLORIDE 0.9% (P) 100 ML IV ×2 (09:33→21:00)
--- NOTE | 2024-03-22 12:37 | PC.SS ---
Addendum entered by Lindsay Panchal 03/22/24 16:04: SS followed up with patient and his preference is [facility]. Original Note: Follow up note: SS spoke to physician and patient is ready for d/c. They recommended short stay at SNF. States patient is agreeable. SS sent off inquiry through [employer]. However, patient insurance requires prior auth. PT evaluation needed. Physician updated.
[2024-03-22] MEDS: MORPHINE SULF INJ 10 MG/ML VIAL IVP (14:02)
--- NOTE | 2024-03-22 14:05 | PD.RESDS ---
Planned Discharge Date 03/22/24 DS: Providers Provider Date of admission: 03/19/24 01:30 Primary care physician: Hayden Singh MD Admitting Provider: Kendall Easley MD Attending Provider on Admission: Kendall Easley MD Consults: 03/20/24 09:12 Consult to General Surgery Routine Comment: Consulting Provider: Janine Harrison 03/21/24 14:05 Referral Wound Care Routine Comment: 03/22/24 12:34 Referral Physical Therapy Stat Comment: Required for DC today. Physician Instructions: Attending Provider on DC: Jung Portillo MD Discharging Provider: Jung Poritllo MD Hospital Course Hospital Course Hospital course: Patient was seen at bedside this morning. No overnight events. Patient underwent amputation of second, third, and part of the fifth toe of the right foot. Surgeon stated that patient had no bleeding from the wound during amputation. Patient had a fall this morning in which she stated he was at the edge of the bed and he went to place something on the table beside did and when he made force on his right foot he slipped and ended up on the floor, but he denied hitting his head or having any pain at this time. No other complaints at this time. Time Spent with Patient Time attestation: Total time spent providing and/or coordinating discharge services: Home Health Home Health Referral Orders: 03/22/24 10:59 Home Health Referral Routine Reason For Exam: PT Home-Bound The patient must either because of illness or injury, need the aid of supportive devices such as crutches, canes, wheelchairs, and walkers; the use of special transportation; or the assistance of another person in order to leave their place of residence; OR have a condition such that leaving his or her home is medically contraindicated. In addition, the patient also meets the following criteria: patient is normally unable to leave the home and leaving home requires considerable taxing effort. Addendum to Home Health Certification Practitioner's Certification: I certify that the patient has been under my care in the hospital and the care of attending physician (see below). We had a [id number] encounter on (see date below). My clinical findings indicate that the patient is home bound per the above criteria and the Home Health Services noted in these orders are medically necessary. The primary reason for the [id number] encounter is related to the fact that the patient requires home health services. Date Certifying [id number] Physician Encounter: 03/22/24 Physician's Name who will Assume Oversight for Services: Hayden Singh Physician's Phone No.who will Assume Oversight for Service: POLYETHYLENE BAG MACHINE OPERATOR - Community Resources: No PT to Evaluate: Yes PT to evaluate and provide a treatmnet plan to increase patient's mobility and strength. Wound Care: No IV Therapy: No RN Safety Evaluation: Yes RN to evaluate and create a plan of care that will produce positive outcomes. Palliative Treatment: No Palliative treatment and evaluate the need for hospice. Home Health Aide - Personal Care: No Home Health Aide to assist with any ADL's. Exam Vital Signs Temp Pulse Resp BP Pulse Ox O2 Del Method O2 Flow Rate 97.6 F 86 17 117/84 96 Room Air 3 03/22/24 12:03/22/24 12:03/22/24 12:03/22/24 12:03/22/24 12:03/22/24 12:03/20/24 17:50 Discharge Plan Plan Patient Disposition: HOME (Self Care) Care Plan Goals: Please follow-up with your PCP within 1 week of discharge. Recommended to follow up at [facility] on 03/25/24. Please get referral for vascular surgeon thierry. Please follow-up with general surgeon Dr. Jean within 1 to 2-week of discharge. You have been started on: -Amoxicillin clavulanate 8 75-1 25 mg twice daily for 7 days -Doxycycline 100 Mg twice daily for 7 days -Naloxone 4 Mg per actuation spray as needed for opioid overdose Continue taking all other medicines as prescribed -Recommended to return back to emergency department if your symptoms persists or worsens Prescriptions/Referrals Prescriptions/Med Rec: New naloxone [Narcan] 4 mg/actuation spray,non-aerosol 4 mg intranasal Q3M PRN (Reason: opioid overdose) Qty: 2 0RF Rx Instructions: spray 1 dose into ONE nostril; alternate nostrils w each dose until help arrives doxycycline hyclate 100 mg capsule 100 mg PO BID Qty: 14 0RF amoxicillin-pot clavulanate 875-125 mg tablet 1 tab PO BID Qty: 14 0RF Continued alprazolam 0.5 mg tablet 0.5 mg PO QHS PRN (Reason: Pain, Severe) Rx Instructions: 1 tablet TID as needed for pain gabapentin 800 mg tablet 800 mg PO QDAY losartan 25 mg tablet 25 mg PO QDAY montelukast 10 mg tablet 10 mg PO QDAY albuterol sulfate 2.5 mg/0.5 mL solution for nebulization 10 mg inhalation Q4H MDD 22.5 PRN (Reason: Pain) trazodone 100 mg tablet 100 mg ONCE PM Patient Comments: take 1 tablet by mouth at bedtime hydrocodone-acetaminophen 7.5-325 mg tablet 7.5 tab PO [id number] PRN (Reason: Pain) Patient Comments: take 1 tablet by mouth three times a day if needed for pain Referrals: Janine Harrison MD [Physician] - Hayden Singh MD [Primary Care Provider] - Patient/Caregiver Discharge Instructions Discharge Activity: activity as tolerated Other Discharge Activity Instructions:: 1) Follow up at [facility], [address] [place] [address]. Call [phone] for appointment. 2) Wound care to right foot. Keep dressing clean and dry in between dressing changes. Ambulate using only the heel of your foot. Monitor for any fevers, increasing pain, redness, foul smell or active bleeding to site. If any of these occur please see your Primary MD or return to ED. -Wash hands with soap and water. -Gently remove old dressing, saturate with wound cleanser spray to help loosen gauze. -Cleanse site with wound cleanser spray and gently pat dry. -Wash hands again -Cover open wound with adaptic gauze. -Layer with dry gauze than secure with gauze wrap. -Change every other day and as needed for falling off. Education Materials: Wound Care Dc, Preventing Surgical Site Infections, Diabetes PAD, Wound Dressing Change Steps Print Language: Portuguese Stand Alone Forms: Camille Award Info., Patient Portal Info Letter Discharge Order Discharge Orders: Discharge (Routine); Ordered 03/22/24 Ordered By: Favio Petersen
--- NOTE | 2024-03-22 14:09 | PD.RESPRO ---
Documentation for date of: 03/22/24 Exam Vital Signs Temp Pulse Resp BP Pulse Ox O2 Del Method O2 Flow Rate 97.6 F 86 17 117/84 96 Room Air 3 03/22/24 12:00 03/22/24 12:00 03/22/24 12:00 03/22/24 12:00 03/22/24 12:00 03/22/24 12:00 03/20/24 17:50 Objective Labs 03/22/24 05:03 03/22/24 05:03 Labs: Laboratory Results - last 24 hr 03/22/24 05:03 WBC 10.3 RBC 3.74 L Hgb 11.1 L Hct 32.9 L MCV 88 MCH 29.7 MCHC 33.7 RDW Std Deviation 42.9 Plt Count 166 Neut % (Auto) 64 Lymph % (Auto) 21 [place] % (Auto) 11 Eos % (Auto) 3 Baso % (Auto) 0 Neut # (Auto) 6.6 Lymph # (Auto) 2.2 [place] # (Auto) 1.1 H Eos # (Auto) 0.3 Baso # (Auto) 0.0 Immature Gran # (Auto) 0.05 H Absolute Nucleated RBC 0.00 Immature Gran % 1 H Nucleated RBC % 0 Sodium 136 Potassium 3.7 Chloride 97 L Carbon Dioxide 32.4 H Anion Gap 7 BUN 22 Creatinine 0.9 Estim Creat Clear Calc 63.3 eGFR > 60 BUN/Creatinine Ratio 24 H Glucose 104 Calculated Osmolality 275 Calcium 8.7 Corrected Calcium 9.0 Phosphorus 3.6 Magnesium 1.8 Total Bilirubin 0.5 D AST 18 ALT 28 Alkaline Phosphatase 64 D Total Protein 6.1 Albumin 3.6 Globulin 2.5 Albumin/Globulin Ratio 1.4 Quality Measures Quality Measures none Assessment & Plan Assessment Current Active Medications: Generic Name Dose Route Start Last Admin Trade Name Freq PRN Reason Stop Dose Admin Acetaminophen 650 mg 03/19/24 16:54 Acetaminophen 325 Mg Tablet PO 04/18/24 16:53 Q6H PRN Fever >100.4 Acetaminophen 650 mg 03/19/24 16:54 Acetaminophen 325 Mg Tablet PO 04/18/24 16:53 Q6H PRN PAIN SCALE 1-3 (mild Hydrocodone Bitart/Acetaminophen 1 tab 03/19/24 16:54 03/22/24 09:32 Hydrocodone/Apap 5/325 Tablet PO 03/24/24 16:53 1 tab Q4HR PRN Administration PAIN SCALE 4-6 (Moderate Albuterol/Ipratropium 3 ml 03/20/24 16:32 Albuterol/Ipratropium (Duoneb) Rt Stephany 3 Ml Nebu INH 04/19/24 16:31 Q4HRRT PRN WHEEZING Alprazolam 0.5 mg 03/19/24 17:57 03/22/24 09:32 Alprazolam 0.25 Mg Tablet PO 03/24/24 20:59 0.5 mg HS PRN Administration Anxiety Amlodipine Besylate 5 mg 03/19/24 18:00 03/22/24 09:32 Amlodipine Besylate 5 Mg Tablet PO 04/18/24 17:59 5 mg QDAY ALEX Administration Gabapentin 400 mg 03/19/24 18:00 03/22/24 09:32 Gabapentin 100 Mg Capsule PO 04/18/24 17:59 400 mg QDAY ALEX Administration Doxycycline Hyclate 100 mg/ 100 mls @ 100 mls/hr 03/19/24 09:30 03/22/24 11:57 Sodium Chloride IV 03/26/24 09:29 Infused BID ALEX Infusion Piperacillin/Tazobactam/Dextrose 50 mls @ 12.5 mls/hr 03/19/24 14:00 03/22/24 14:02 Zosyn IV 03/26/24 13:59 12.5 mls/hr Q8HR ALEX Administration Morphine Sulfate 1 mg 03/22/24 10:33 03/22/24 14:02 Morphine Sulf Inj 10 Mg/Ml Vial IVP 03/27/24 10:32 1 mg Q4HR PRN Administration Pain 7-10 Trazodone HCl 100 mg 03/19/24 21:00 03/21/24 21:19 Trazodone Hcl 50 Mg Tablet PO 04/18/24 20:59 100 mg HS ALEX Administration
--- NOTE | 2024-03-22 14:30 | ESPR_ITS ---
<Statement entered by Joanie Bueno MD - 03/26/24 15:41> I reviewed above note and agree with findings and plans. I have also personally examined the patient with medicine team and went over assessment and plan with medical team including continuous improvement intern and resident physician. Documentation for date of: 03/22/24 Subjective Subjective Interval history: Patient seen at bedside. Today is day 2 postop of amputation of the second, third, fourth and fifth toe of the right foot due to severe peripheral artery disease. Complains of some mild pain in his right foot otherwise has no other complaints. He has been cleared for discharge by surgeon Dr Jean. He will require outpatient vascular surgery consultation. Physical therapy evaluation ordered for SNF placement. 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 Eyes open, symmetrical, & clear CARDIO: No chest pain on palpation. Heart RRR, no obvious murmurs PULM: No noted coughing/dyspnea. Lungs CTA B/L GI: Abdomen soft, nondistended, no pain on palpation. BSx4 URO/ELECTROPHYSIOLOGY TECH:: No further abnormalities noted. SKIN/MSK/EXT: Right foot wrapped in clean and dry dressing with some mild swelling. Objective Labs 03/22/24 05:03 03/22/24 05:03 Labs: Laboratory Results - last 24 hr 03/22/24 05:03 WBC 10.3 RBC 3.74 L Hgb 11.1 L Hct 32.9 L MCV 88 MCH 29.7 MCHC 33.7 RDW Std Deviation 42.9 Plt Count 166 Neut % (Auto) 64 Lymph % (Auto) 21 [place] % (Auto) 11 Eos % (Auto) 3 Baso % (Auto) 0 Neut # (Auto) 6.6 Lymph # (Auto) 2.2 [place] # (Auto) 1.1 H Eos # (Auto) 0.3 Baso # (Auto) 0.0 Immature Gran # (Auto) 0.05 H Absolute Nucleated RBC 0.00 Immature Gran % 1 H Nucleated RBC % 0 Sodium 136 Potassium 3.7 Chloride 97 L Carbon Dioxide 32.4 H Anion Gap 7 BUN 22 Creatinine 0.9 Estim Creat Clear Calc 63.3 eGFR > 60 BUN/Creatinine Ratio 24 H Glucose 104 Calculated Osmolality 275 Calcium 8.7 Corrected Calcium 9.0 Phosphorus 3.6 Magnesium 1.8 Total Bilirubin 0.5 D AST 18 ALT 28 Alkaline Phosphatase 64 D Total Protein 6.1 Albumin 3.6 Globulin 2.5 Albumin/Globulin Ratio 1.4 Quality Measures Quality Measures none Advance care planning discussed with:: patient Assessment & Plan Assessment Current Active Medications: Generic Name Dose Route Start Last Admin Trade Name Freq PRN Reason Stop Dose Admin Acetaminophen 650 mg 03/19/24 16:54 Acetaminophen 325 Mg Tablet PO 04/18/24 16:53 Q6H PRN Fever >100.4 Acetaminophen 650 mg 03/19/24 16:54 Acetaminophen 325 Mg Tablet PO 04/18/24 16:53 Q6H PRN PAIN SCALE 1-3 (mild Hydrocodone Bitart/Acetaminophen 1 tab 03/19/24 16:54 03/22/24 09:32 Hydrocodone/Apap 5/325 Tablet PO 03/24/24 16:53 1 tab Q4HR PRN Administration PAIN SCALE 4-6 (Moderate Albuterol/Ipratropium 3 ml 03/20/24 16:32 Albuterol/Ipratropium (Duoneb) Rt Stephany 3 Ml Nebu INH 04/19/24 16:31 Q4HRRT PRN WHEEZING Alprazolam 0.5 mg 03/19/24 17:57 03/22/24 09:32 Alprazolam 0.25 Mg Tablet PO 03/24/24 20:59 0.5 mg HS PRN Administration Anxiety Amlodipine Besylate 5 mg 03/19/24 18:00 03/22/24 09:32 Amlodipine Besylate 5 Mg Tablet PO 04/18/24 17:59 5 mg QDAY ALEX Administration Gabapentin 400 mg 03/19/24 18:00 03/22/24 09:32 Gabapentin 100 Mg Capsule PO 04/18/24 17:59 400 mg QDAY ALEX Administration Doxycycline Hyclate 100 mg/ 100 mls @ 100 mls/hr 03/19/24 09:30 03/22/24 11:57 Sodium Chloride IV 03/26/24 09:29 Infused BID ALEX Infusion Piperacillin/Tazobactam/Dextrose 50 mls @ 12.5 mls/hr 03/19/24 14:00 03/22/24 14:02 Zosyn IV 03/26/24 13:59 12.5 mls/hr Q8HR ALEX Administration Morphine Sulfate 1 mg 03/22/24 10:33 03/22/24 14:02 Morphine Sulf Inj 10 Mg/Ml Vial IVP 03/27/24 10:32 1 mg Q4HR PRN Administration Pain 7-10 Trazodone HCl 100 mg 03/19/24 21:00 03/21/24 21:19 Trazodone Hcl 50 Mg Tablet PO 04/18/24 20:59 100 mg HS ALEX Administration Plan Summary: The patient is a 68-year-old male with past medical history of hypertension and anxiety was admitted on 03/18/2024 due to right second and third toe dry gangrene. #Right second and third toe dry gangrene, s/p amputation 2/3/partial 5 toe (Day 2 PO #Severe peripheral artery disease #Leukocytosis ? Patient initially came in due to discoloration of his toes. - Initial foot x-ray did not show any fractures ?Arterial duplex showed severe PAD ?Abdomen CTA runoff showed severe PAD with 90% stenosis of right femoral as well as popliteal artery stenosis. ? Culture from right foot wound grew GNR's ? Blood cultures have been negative in the first 24 hours ? Patient has leukocytosis of 13.3 today likely reactive - Patient underwent amputation of second, third, and part of the fifth toe of the right foot on 03/20/2024 - Blood Cx negative -Wound Cx grew GNR Plan: ? Continue doxycycline and Zosyn [03/18/2024?], consider switching to Augmentin prior to discharge - Continue wound care ? Physical therapy evaluation #Hypoosmolar hyponatremia-resolved ? Patient came in with sodium of 121 ? Received IV fluids in the ER ? Sodium today 136 #Normocytic hypochromic anemia ? Hemoglobin on admission was 12.9 and currently 12.3 ? Could be due to hemodilution versus iron deficiency - Ferritin normal Plan: ? Will transfuse hemoglobin less than 7 ? Will continue to monitor #Hx of hypertension ? Restart patient's amlodipine 5 mg daily #Hx of anxiety ? Restart patient's trazodone 100 mg at bedtime Disposition: Patient seen in med surg for R 2/3 toe gangrene s/p amputation of 2/3/partial 5 toe, continue Abx. Diet:Carb consistent GI prophylaxis: not indicated DVT prophylaxis: SCDs Code: Full code Case was discussed with Dr Petersen PGY-2 and attending physician, Dr Ximena Portillo MD PGY-1 Senior Resident Attestation: The patient is a 68-year-old male with significant past medical history of hypertension and anxiety presented with blackish discoloration of right second and fourth toe was found to have dry gangrene of right second and third toe. The patient underwent amputation of right second and third toe with partial amputation of fifth toe by general surgeon Dr. Jean. There was no blood loss during the amputation. We will continue with Zosyn and doxycycline. The patient is pending PT eval and authorization to be dishcarged to SNF. I discussed with and supervised the continuous improvement intern physician involved in the care of this patient. I personally saw and examined the patient and discussed the assessment and plan with the entire medicine team, including my attending. I agree with the assessment and plan as documented above. Favio Petersen MD PGY2
[2024-03-22] MEDS: traZODone HCL 50 MG TABLET 100 MG PO (21:00)
[2024-03-22] MEDS: ACETAMINOPHEN 325 MG TABLET 650 MG PO (23:49)
[2024-03-23] VITALS (7 sets, daily range): BP systolic 119–168; BP diastolic 69–95; PULSE 84–101; RESP 16–95; TEMP 36.7–37.6; O2SAT 95–98
[2024-03-23] MEDS: KETOROLAC INJ 30 MG/ML VIAL 15 MG IVP (00:13)
[2024-03-23] MEDS: PIPER/TAZO 3.375 GM 50 ML IV ×3 (05:14→22:11)
[2024-03-23] MEDS: HYDROcodone/APAP 5/325 TABLET 1 TAB PO ×2 (07:37→21:06)
[2024-03-23] MEDS: GABAPENTIN 100 MG CAPSULE 400 MG PO (08:57)
[2024-03-23] MEDS: DOXYCYCLINE INJ 100 MG in SODIUM CHLORIDE 0.9% (P) 100 ML IV ×2 (08:57→21:07)
[2024-03-23] MEDS: amLODIPine BESYLATE 5 MG TABLET PO (08:57)
[2024-03-23 09:36] LABS: Basophils # (Auto) 0.1 Thou/mm3 (0.0-0.2); Basophils % (Auto) 1 % (0-2.5); Eosinophils # (Auto) 0.3 Thou/mm3 (0.0-0.5); Eosinophils % (Auto) 5 % (0-10); Hematocrit 34.8 % (41.0-53.0); Hemoglobin 11.8 g/dL (13.5-16.0); Immature Granulocytes % (Auto) 0 % (0-0); Immature Granulocytes Auto 0.02 Thou/mm3 (0.00-0.00); Lymphocytes # (Auto) 1.6 Thou/mm3 (1.0-4.8); Lymphocytes % (Auto) 22 % (10-50); Mean Corpuscular HGB Conc 33.9 g/dl (31.0-37.0); Mean Corpuscular Hemoglobin 29.4 pg (25.0-35.0); Mean Corpuscular Volume 87 fL (80-100); Monocytes # (Auto) 0.8 Thou/mm3 (0.0-0.8); Monocytes % (Auto) 11 % (0-12); Neutrophils # (Auto) 4.4 Thou/mm3 (1.8-7.7); Neutrophils % (Auto) 61 % (37-80); Nucleated Red Blood Cell % 0 /100 WBC (0); Platelet Count 199 Thou/mm3 (140-440); RDW Standard Deviation 43.3 fL (35.1-43.9); Red Blood Count 4.01 Miln/mm3 (4.50-5.90); White Blood Count 7.1 Thou/mm3 (3.8-10.6)
[2024-03-23 10:02] LABS: Alanine Aminotransferase 31 U/L (10-49); Albumin, Serum 3.7 gm/dL (3.4-4.8); Albumin/Globulin Ratio 1.4 (1.2-2.2); Alkaline Phosphatase 63 U/L (46-116); Anion Gap 6 (7-16); Aspartate Amino Transferase 18 U/L (0-34); BUN/Creatinine Ratio 29 Ratio (12-20); Bilirubin,Total 0.6 mg/dL (0.3-1.2); Blood Urea Nitrogen 23 mg/dL (9-23); Calcium 8.9 mg/dL (8.3-10.6); Calcium (Corrected) 9.1 mg/dL (8.5-10.1); Carbon Dioxide 30.6 mMol/L (20.0-31.0); Chloride 98 mMol/L (98-107); Creatinine (Component) 0.8 mg/dL (0.6-1.3); Estimated Creatinine Clearance 77.5 mL/min (>60); Globulin 2.7 gm/dL (2.3-3.5); Glucose 139 mg/dL (74-106); Osmolality,Calculated 275 (275-295); Sodium 135 mMol/L (136-145); Total Protein 6.4 gm/dL (5.7-8.2); eGFR > 60 See Note
[2024-03-23] MEDS: ALPRazoLAM 0.25 MG TABLET 0.5 MG PO ×2 (10:39→23:51)
--- NOTE | 2024-03-23 15:14 | ESPR_ITS ---
<Statement entered by Joanie Bueno MD - 03/29/24 15:56> I reviewed above note and agree with findings and plans. I have also personally examined the patient with medicine team and went over assessment and plan with medical team including internet sales manager and resident physician. Documentation for date of: 03/23/24 Subjective Subjective Interval history: Patient seen at bedside. No acute overnight events. He endorses only minimal pain in his right foot but otherwise has no complaints. Pending SNF placement on Monday. 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 Eyes open, symmetrical, & clear CARDIO: No chest pain on palpation. Heart RRR, no obvious murmurs PULM: No noted coughing/dyspnea. Lungs CTA B/L GI: Abdomen soft, nondistended, no pain on palpation. BSx4 URO/OPERATIONS BUSINESS PARTNER:: No further abnormalities noted. SKIN/MSK/EXT: Right foot wrapped in clean and dry dressing with some mild swelling. Objective Labs 03/23/24 09:05 03/23/24 09:05 Labs: Laboratory Results - last 24 hr 03/23/24 09:05 WBC 7.1 RBC 4.01 L Hgb 11.8 L Hct 34.8 L MCV 87 MCH 29.4 MCHC 33.9 RDW Std Deviation 43.3 Plt Count 199 D Neut % (Auto) 61 Lymph % (Auto) 22 [place] % (Auto) 11 Eos % (Auto) 5 Baso % (Auto) 1 Neut # (Auto) 4.4 Lymph # (Auto) 1.6 [place] # (Auto) 0.8 Eos # (Auto) 0.3 Baso # (Auto) 0.1 Immature Gran # (Auto) 0.02 H Absolute Nucleated RBC 0.00 Immature Gran % 0 Nucleated RBC % 0 Sodium 135 L Potassium 4.0 Chloride 98 Carbon Dioxide 30.6 Anion Gap 6 L BUN 23 Creatinine 0.8 Estim Creat Clear Calc 77.5 eGFR > 60 BUN/Creatinine Ratio 29 H Glucose 139 H Calculated Osmolality 275 Calcium 8.9 Corrected Calcium 9.1 Total Bilirubin 0.6 AST 18 ALT 31 Alkaline Phosphatase 63 Total Protein 6.4 Albumin 3.7 Globulin 2.7 Albumin/Globulin Ratio 1.4 Quality Measures Quality Measures none Advance care planning discussed with:: patient Assessment & Plan Assessment Current Active Medications: Generic Name Dose Route Start Last Admin Trade Name Freq PRN Reason Stop Dose Admin Acetaminophen 650 mg 03/19/24 16:54 Acetaminophen 325 Mg Tablet PO 04/18/24 16:53 Q6H PRN Fever >100.4 Acetaminophen 650 mg 03/19/24 16:54 03/22/24 23:49 Acetaminophen 325 Mg Tablet PO 04/18/24 16:53 650 mg Q6H PRN Administration PAIN SCALE 1-3 (mild Hydrocodone Bitart/Acetaminophen 1 tab 03/19/24 16:54 03/23/24 07:37 Hydrocodone/Apap 5/325 Tablet PO 03/24/24 16:53 1 tab Q4HR PRN Administration PAIN SCALE 4-6 (Moderate Albuterol/Ipratropium 3 ml 03/20/24 16:32 Albuterol/Ipratropium (Duoneb) Rt Stephany 3 Ml Nebu INH 04/19/24 16:31 Q4HRRT PRN WHEEZING Alprazolam 0.5 mg 03/24/24 09:00 Alprazolam 0.25 Mg Tablet PO 03/29/24 08:59 QDAY PRN ANXIETY Amlodipine Besylate 5 mg 03/19/24 18:00 03/23/24 08:57 Amlodipine Besylate 5 Mg Tablet PO 04/18/24 17:59 5 mg QDAY ALEX Administration Gabapentin 400 mg 03/19/24 18:00 03/23/24 08:57 Gabapentin 100 Mg Capsule PO 04/18/24 17:59 400 mg QDAY ALEX Administration Doxycycline Hyclate 100 mg/ 100 mls @ 100 mls/hr 03/19/24 09:30 03/23/24 08:57 Sodium Chloride IV 03/26/24 09:29 100 mls/hr BID ALEX Administration Piperacillin/Tazobactam/Dextrose 50 mls @ 12.5 mls/hr 03/19/24 14:00 03/23/24 14:01 Zosyn IV 03/26/24 13:59 12.5 mls/hr Q8HR ALEX Administration Morphine Sulfate 1 mg 03/22/24 10:33 03/22/24 14:02 Morphine Sulf Inj 10 Mg/Ml Vial IVP 03/27/24 10:32 1 mg Q4HR PRN Administration Pain 7-10 Trazodone HCl 100 mg 03/22/24 21:00 03/22/24 21:00 Trazodone Hcl 50 Mg Tablet PO 04/18/24 20:59 100 mg HS ALEX Administration Plan Summary: The patient is a 68-year-old male with past medical history of hypertension and anxiety was admitted on 03/18/2024 due to right second and third toe dry gangrene. #Right second and third toe dry gangrene, s/p amputation 2/3/partial 5 toe (Day 3 PO) #Severe peripheral artery disease #Leukocytosis-resolved ? Patient initially came in due to discoloration of his toes. - Initial foot x-ray did not show any fractures ?Arterial duplex showed severe PAD ?Abdomen CTA runoff showed severe PAD with 90% stenosis of right femoral as well as popliteal artery stenosis. ? Culture from right foot wound grew GNR's ? Blood cultures have been negative in the first 24 hours ? Patient has leukocytosis of 13.3 today likely reactive - Patient underwent amputation of second, third, and part of the fifth toe of the right foot on 03/20/2024 - Blood Cx negative -Wound Cx grew GNR Patient will require vascular surgery consult as an outpatient on discharge. Plan: ? Continue Doxycycline and Zosyn, consider switching to Augmentin prior to discharge - Continue wound care ? Physical therapy evaluated, pending SNF placement #Hypoosmolar hyponatremia-resolved ? Patient came in with sodium of 121. Sodium today 135 ? Received IV fluids in the ER #Normocytic hypochromic anemia ? Hemoglobin on admission was 12.9 and currently 12.3 ? Could be due to hemodilution versus iron deficiency - Ferritin normal Plan: ? Will transfuse hemoglobin less than 7 ? Will continue to monitor #Hx of hypertension ? Restart patient's amlodipine 5 mg daily #Hx of anxiety ? Restart patient's trazodone 100 mg at bedtime and Alprazolam 0.5mg daily Disposition: Patient seen in med surg for R 2/3 toe gangrene s/p amputation of 2/3/partial 5 toe, continue Abx. Diet:Carb consistent GI prophylaxis: not indicated DVT prophylaxis: SCDs Code: Full code Case was discussed with attending physician, Dr Ximena Portillo MD PGY-1
[2024-03-23] MEDS: traZODone HCL 50 MG TABLET 100 MG PO (21:07)
[2024-03-24] VITALS (7 sets, daily range): BP systolic 100–172; BP diastolic 66–101; PULSE 94–105; RESP 17–20; TEMP 36.5–37.3; O2SAT 95–99
[2024-03-24] MEDS: HYDROcodone/APAP 5/325 TABLET 1 TAB PO ×3 (02:08→18:48)
[2024-03-24] MEDS: HYDROmorphone INJ 2 MG/ML VIAL 0.5 MG IVP (04:28)
[2024-03-24] MEDS: PIPER/TAZO 3.375 GM 50 ML IV (05:23)
[2024-03-24] MEDS: GABAPENTIN 100 MG CAPSULE 400 MG PO (09:21)
[2024-03-24] MEDS: amLODIPine BESYLATE 5 MG TABLET PO (09:21)
[2024-03-24] MEDS: DOXYCYCLINE INJ 100 MG in SODIUM CHLORIDE 0.9% (P) 100 ML IV ×2 (09:21→21:29)
[2024-03-24] MEDS: ALPRazoLAM 0.25 MG TABLET 0.5 MG PO ×2 (10:08→23:25)
--- NOTE | 2024-03-24 13:26 | ESPR_ITS ---
<Statement entered by Joanie Bueno MD - 03/29/24 15:58> I reviewed above note and agree with findings and plans. I have also personally examined the patient with medicine team and went over assessment and plan with medical team including business analyst intern and resident physician. Documentation for date of: 03/24/24 Subjective Subjective Interval history: Patient seen at bedside. Day 4 postop No acute overnight events. He has no complaints except for some minimal pain in his right foot which is fleeting. Pending SNF placement tomorrow. 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 Eyes open, symmetrical, & clear CARDIO: No chest pain on palpation. Heart RRR, no obvious murmurs PULM: No noted coughing/dyspnea. Lungs CTA B/L GI: Abdomen soft, nondistended, no pain on palpation. BSx4 URO/SCALE MECHANIC:: No further abnormalities noted. SKIN/MSK/EXT: Right foot wrapped in clean and dry dressing with some mild swelling. Objective Labs 03/23/24 09:05 03/23/24 09:05 Quality Measures Quality Measures none Advance care planning discussed with:: patient Assessment & Plan Assessment Current Active Medications: Generic Name Dose Route Start Last Admin Trade Name Freq PRN Reason Stop Dose Admin Acetaminophen 650 mg 03/19/24 16:54 Acetaminophen 325 Mg Tablet PO 04/18/24 16:53 Q6H PRN Fever >100.4 Acetaminophen 650 mg 03/19/24 16:54 03/22/24 23:49 Acetaminophen 325 Mg Tablet PO 04/18/24 16:53 650 mg Q6H PRN Administration PAIN SCALE 1-3 (mild Hydrocodone Bitart/Acetaminophen 1 tab 03/19/24 16:54 03/24/24 07:51 Hydrocodone/Apap 5/325 Tablet PO 03/24/24 16:53 1 tab Q4HR PRN Administration PAIN SCALE 4-6 (Moderate Albuterol/Ipratropium 3 ml 03/20/24 16:32 Albuterol/Ipratropium (Duoneb) Rt Stephany 3 Ml Nebu INH 04/19/24 16:31 Q4HRRT PRN WHEEZING Alprazolam 0.5 mg 03/23/24 23:00 03/24/24 10:08 Alprazolam 0.25 Mg Tablet PO 03/28/24 22:59 0.5 mg QDAY PRN Administration ANXIETY Amlodipine Besylate 5 mg 03/19/24 18:00 03/24/24 09:21 Amlodipine Besylate 5 Mg Tablet PO 04/18/24 17:59 5 mg QDAY ALEX Administration Gabapentin 400 mg 03/19/24 18:00 03/24/24 09:21 Gabapentin 100 Mg Capsule PO 04/18/24 17:59 400 mg QDAY ALEX Administration Doxycycline Hyclate 100 mg/ 100 mls @ 100 mls/hr 03/19/24 09:30 03/24/24 09:21 Sodium Chloride IV 03/26/24 09:29 100 mls/hr BID ALEX Administration Piperacillin/Tazobactam/Dextrose 50 mls @ 12.5 mls/hr 03/19/24 14:00 03/24/24 05:23 Zosyn IV 03/26/24 13:59 12.5 mls/hr Q8HR ALEX Administration Morphine Sulfate 1 mg 03/22/24 10:33 03/22/24 14:02 Morphine Sulf Inj 10 Mg/Ml Vial IVP 03/27/24 10:32 1 mg Q4HR PRN Administration Pain 7-10 Trazodone HCl 100 mg 03/22/24 21:00 03/23/24 21:07 Trazodone Hcl 50 Mg Tablet PO 04/18/24 20:59 100 mg HS ALEX Administration Plan Summary: The patient is a 68-year-old male with past medical history of hypertension and anxiety was admitted on 03/18/2024 due to right second and third toe dry gangrene. #Right second and third toe dry gangrene, s/p amputation 2/3/partial 5 toe (Day 4 PO) #Severe peripheral artery disease #Leukocytosis-resolved ? Patient initially came in due to discoloration of his toes. - Initial foot x-ray did not show any fractures ?Arterial duplex showed severe PAD ?Abdomen CTA runoff showed severe PAD with 90% stenosis of right femoral as well as popliteal artery stenosis. ? Culture from right foot wound grew GNR's ? Blood cultures have been negative in the first 24 hours ? Patient has leukocytosis of 13.3 today likely reactive - Patient underwent amputation of second, third, and part of the fifth toe of the right foot on 03/20/2024 - Blood Cx negative -Wound Cx grew GNR Patient will require vascular surgery consult as an outpatient on discharge. Plan: ? DC IV Zosyn - Commence Augmentin and continue doxycycline - Continue wound care ? Physical therapy evaluated, pending SNF placement #Hypoosmolar hyponatremia-resolved ? Patient came in with sodium of 121. Sodium today 135 ? Received IV fluids in the ER #Normocytic hypochromic anemia ? Hemoglobin on admission was 12.9 and currently 12.3 ? Could be due to hemodilution versus iron deficiency - Ferritin normal Plan: ? Will transfuse hemoglobin less than 7 ? Will continue to monitor #Hx of hypertension ? Restart patient's amlodipine 5 mg daily #Hx of anxiety ? Restart patient's trazodone 100 mg at bedtime and Alprazolam 0.5mg daily Disposition: Patient seen in med surg for R 2/3 toe gangrene s/p amputation of 2/3/partial 5 toe, continue Abx. Diet:Carb consistent GI prophylaxis: not indicated DVT prophylaxis: SCDs Code: Full code Case was discussed with attending physician, Dr Ximena Portillo MD PGY-1
[2024-03-24] MEDS: AMOXICILLIN/POT CLAV 875 TABLET 1 TAB PO ×2 (14:49→21:29)
--- NOTE | 2024-03-24 15:54 | PC.SS ---
SS spoke to Yajaira at [facility], she will start auth tomorrow as long as they have open bed for the pt. SS to follow up tomorrow with her.
[2024-03-24] MEDS: traZODone HCL 50 MG TABLET 100 MG PO (21:30)
[2024-03-24] MEDS: MORPHINE SULF INJ 10 MG/ML VIAL IVP (21:36)
[2024-03-25] VITALS: BP 114/87; PULSE 99; RESP 17; TEMP 37; O2SAT 97
[2024-03-25 04:00] VITALS: BP 115/86; PULSE 99; RESP 20; TEMP 36.8; O2SAT 96
[2024-03-25 08:00] VITALS: BP 90/73; PULSE 125; RESP 20; TEMP 37.2; O2SAT 96
[2024-03-25] MEDS: ALPRazoLAM 0.25 MG TABLET 0.5 MG PO ×2 (08:36→21:30)
[2024-03-25] MEDS: DOXYCYCLINE INJ 100 MG in SODIUM CHLORIDE 0.9% (P) 100 ML IV (08:36)
[2024-03-25] MEDS: GABAPENTIN 100 MG CAPSULE 400 MG PO (08:37)
[2024-03-25] MEDS: AMOXICILLIN/POT CLAV 875 TABLET 1 TAB PO (08:37)
--- NOTE | 2024-03-25 09:51 | PD.IDPROG ---
Subjective Subjective Interval history: pt with amputation of a portion of the rt foot the other day for known pvd and kept in hospital by others. I am asked to see him today. Exam Vital Signs Temp Pulse Resp BP Pulse Ox O2 Del Method O2 Flow Rate 99.0 F 125 H 20 90/73 96 Room Air 3 03/25/24 08:00 03/25/24 08:00 03/25/24 08:00 03/25/24 08:00 03/25/24 08:00 03/25/24 08:00 03/20/24 17:50 Narrative Exam room air. benign exam. rt foot wrapped. images noted Objective - Internal Medicine Labs 03/23/24 09:05 03/23/24 09:05 Assessment & Plan A&P Narrative pvd with dry gangrene of rt foot f/u with vascular. do not do superficial cx . they are often misleading. will see again inpt prn Time Spent With Patient Time: Total time spent is greater than 50% in coordination of care (as documented) at patient's floor/unit and/or counseling patient:
[2024-03-25 09:55] LABS: Magnesium 1.6 mg/dL (1.6-2.6)
[2024-03-25 11:51] VITALS: BP 110/77; PULSE 75; RESP 17; TEMP 36.4; O2SAT 96
[2024-03-25] MEDS: GABAPENTIN 100 MG, GABAPENTIN 300 MG 400 MG PO (11:54)
--- NOTE | 2024-03-25 11:55 | PD.RESDS ---
Planned Discharge Date 03/25/24 DS: Providers Provider Date of admission: 03/19/24 01:30 Primary care physician: Hayden Singh MD Admitting Provider: Kendall Easley MD Attending Provider on Admission: Joanie Bueno MD Consults: 03/20/24 09:12 Consult to General Surgery Routine Comment: Consulting Provider: Janine Harrison 03/21/24 14:05 Referral Wound Care Routine Comment: 03/22/24 12:34 Referral Physical Therapy Stat Comment: Required for DC today. Physician Instructions: 03/25/24 08:36 Consult to Infectious Diseases Routine Comment: Consulting Provider: Bryce Anna Attending Provider on DC: Tennille Weston MD Discharging Provider: Tennille Weston MD Hospital Course Hospital Course Hospital course: Patient seen at bedside. Day 4 postop No acute overnight events. He has no complaints except for some minimal pain in his right foot which is fleeting. Pending SNF placement tomorrow. Time Spent with Patient Time attestation: Total time spent providing and/or coordinating discharge services: Exam Vital Signs Temp Pulse Resp BP Pulse Ox O2 Del Method O2 Flow Rate 97.5 F 75 17 110/77 96 Room Air 3 03/25/24 11:51 03/25/24 11:51 03/25/24 11:51 03/25/24 11:51 03/25/24 11:51 03/25/24 11:51 03/20/24 17:50 Discharge Plan Plan Patient Disposition: Xfer Skilled Nsg Fac (SNF) Care Plan Goals: Please follow-up with your PCP within 1 week of discharge. Recommended to follow up at [facility] on 03/25/24. Please get referral for vascular surgeon thierry. Please follow-up with general surgeon Dr. Jean within 1 to 2-week of discharge. You have been started on: -Amoxicillin clavulanate 8 75-1 25 mg twice daily for 7 days -Doxycycline 100 Mg twice daily for 7 days -Naloxone 4 Mg per actuation spray as needed for opioid overdose Continue taking all other medicines as prescribed -Recommended to return back to emergency department if your symptoms persists or worsens Prescriptions/Referrals Prescriptions/Med Rec: New naloxone [Narcan] 4 mg/actuation spray,non-aerosol 4 mg intranasal Q3M PRN (Reason: opioid overdose) Qty: 2 0RF Rx Instructions: spray 1 dose into ONE nostril; alternate nostrils w each dose until help arrives doxycycline hyclate 100 mg capsule 100 mg PO BID Qty: 14 0RF amoxicillin-pot clavulanate 875-125 mg tablet 1 tab PO BID Qty: 14 0RF Continued alprazolam 0.5 mg tablet 0.5 mg PO QHS PRN (Reason: Pain, Severe) Rx Instructions: 1 tablet TID as needed for pain gabapentin 800 mg tablet 800 mg PO QDAY losartan 25 mg tablet 25 mg PO QDAY montelukast 10 mg tablet 10 mg PO QDAY albuterol sulfate 2.5 mg/0.5 mL solution for nebulization 10 mg inhalation Q4H MDD 22.5 PRN (Reason: Pain) trazodone 100 mg tablet 100 mg ONCE PM Patient Comments: take 1 tablet by mouth at bedtime hydrocodone-acetaminophen 7.5-325 mg tablet 7.5 tab PO [id number] PRN (Reason: Pain) Patient Comments: take 1 tablet by mouth three times a day if needed for pain Referrals: Janine Harrison MD [Physician] - Hayden Snigh MD [Primary Care Provider] - Patient/Caregiver Discharge Instructions Discharge Activity: activity as tolerated Other Discharge Activity Instructions:: 1) Follow up at [facility], [address] [place] [address]. Call [phone] for appointment. 2) Wound care to right foot. Keep dressing clean and dry in between dressing changes. Ambulate using only the heel of your foot. Monitor for any fevers, increasing pain, redness, foul smell or active bleeding to site. If any of these occur please see your Primary MD or return to ED. -Wash hands with soap and water. -Gently remove old dressing, saturate with wound cleanser spray to help loosen gauze. -Cleanse site with wound cleanser spray and gently pat dry. -Wash hands again -Cover open wound with adaptic gauze. -Layer with dry gauze than secure with gauze wrap. -Change every other day and as needed for falling off. Education Materials: Wound Care Dc, Preventing Surgical Site Infections, Diabetes PAD, Wound Dressing Change Steps Print Language: Sinhala Stand Alone Forms: Camille Award Info., Patient Portal Info Letter Discharge Order Discharge Orders: Discharge (Routine); Ordered 03/25/24 Ordered By: Nura Hunter
--- NOTE | 2024-03-25 12:06 | ESCONSULT_ITS ---
RE: PASHA HAMMOND : 1955 DATE OF CONSULTATION: 03/25/2024 REFERRING PHYSICIAN: Kendall Easley MD REASON FOR CONSULTATION: Dry gangrene of the right foot. HISTORY OF PRESENT ILLNESS: The patient is an unfortunate 68-year-old man with a known history of peripheral vascular disease. He is well aware of that. He apparently has followup planned with Vascular Surgery, but I am asked to see him. Imaging does not show any gross abnormalities. He already had amputation of some gangrenous toes by Dr. Harrison. MEDICAL HISTORY: Include hypertension and asthma. SURGICAL HISTORY: Includes recent toe amputations for gangrene. He denies other surgeries. ALLERGIES: NONE NOTED. IMMUNIZATIONS: His last tetanus is not known. He does take a flu shot every year. He has not had COVID vaccine and has had pneumococcal vaccinations. FAMILY HISTORY: Unremarkable. SOCIAL HISTORY: He is a nonsmoker. He lives alone. He hopes to go to a rehab in the near future PHYSICAL EXAMINATION: GENERAL: The patient is well appearing. HEENT: Grossly benign. HEART: Grossly benign. LUNGS: Grossly benign. ABDOMEN: Grossly benign. EXTREMITIES: His right foot is wrapped. Wrappings were not removed. There is no bleed or strike through on the dressings suggesting that his peripheral vascular disease may have still impaired his circulation a bit. The operative findings were as noted. P.o. Bactrim appears to be an effective agent for the organism that was found, although only a couple of days of treatment all that are recommended at this point. The patient unfortunately looks like we have superficial swab culture at best. If it was an operative culture, that is fine, but a couple of days of treatment from now would probably be sufficient as the toes have been amputated as mentioned. ASSESSMENT: 1. Peripheral vascular disease. 2. Asthma. 3. Hyperlipidemia. 4. Hypertension. RECOMMENDATIONS: The patient should continue his home medications. From a therapeutic standpoint, I am going to stop his p.o. suppressive medications and switch him to some oral Bactrim. His renal function is okay, so two days of that should be fine. No labs are needed. He can follow up with Vascular as planned. There is no need for him to follow with Infectious Disease. DT: 10:00:21 TT: 11:01:00 Ref: [id number] - TID: [id number] MTDD
[2024-03-25 16:00] VITALS: BP 90/69; PULSE 101; RESP 18; TEMP 37; O2SAT 97
[2024-03-25] MEDS: HYDROcodone/APAP 5/325 TABLET 1 TAB PO (17:03)
--- NOTE | 2024-03-25 18:37 | PC.NURSE ---
Patient has discharge orders but still pending for SNF placement.
--- NOTE | 2024-03-25 19:25 | ESPR_ITS ---
<Statement entered by Joanie Bueno MD - 04/02/24 11:49> I reviewed above note and agree with findings and plans. I have also personally examined the patient with medicine team and went over assessment and plan with medical team including sales and marketing intern and resident physician. Documentation for date of: 03/25/24 Subjective Subjective Interval history: 03/25/2024: Pt examined at bedside today. Is requesting Xanax today, says he has been taking it for years. Reports that he has no pain in his legs at this time and is doing well and is wondering when he is going to go home. No other complaints at this time. Exam Vital Signs Temp Pulse Resp BP Pulse Ox O2 Del Method O2 Flow Rate 98.6 F 101 H 18 90/69 97 Room Air 3 03/25/24 16:00 03/25/24 16:00 03/25/24 16:03/25/24 16:00 03/25/24 16:00 03/25/24 16:00 03/20/24 17:50 Narrative Exam GENERAL: AAOX3 NEURO: SHELTER DIRECTOR grossly intact, moves extremities x4 HEENT: Moist mucosa. Eyes open, symmetrical, & clear CARDIO: No chest pain on palpation. Heart RRR, no obvious murmurs PULM: No noted coughing/dyspnea. Lungs CTA B/L GI: Abdomen soft, nondistended, no pain on palpation. BSx4 URO/PROCEDURE TECH:: No further abnormalities noted. SKIN/MSK/EXT: Right foot wrapped in clean and dry dressing with some mild swelling. Objective Labs 03/26/24 04:45 03/26/24 04:45 Labs: Laboratory Results - last 24 hr 03/25/24 09:14 Magnesium 1.6 Quality Measures Quality Measures none Advance care planning discussed with:: patient Assessment & Plan Assessment Current Active Medications: Generic Name Dose Route Start Last Admin Trade Name Freq PRN Reason Stop Dose Admin Acetaminophen 650 mg 03/19/24 16:54 Acetaminophen 325 Mg Tablet PO 04/18/24 16:53 Q6H PRN Fever >100.4 Acetaminophen 650 mg 03/19/24 16:54 03/22/24 23:49 Acetaminophen 325 Mg Tablet PO 04/18/24 16:53 650 mg Q6H PRN Administration PAIN SCALE 1-3 (mild Hydrocodone Bitart/Acetaminophen 1 tab 03/24/24 18:43 03/25/24 17:03 Hydrocodone/Apap 5/325 Tablet PO 03/29/24 18:42 1 tab Q6HR PRN Administration Pain 4-6 Albuterol/Ipratropium 3 ml 03/20/24 16:32 Albuterol/Ipratropium (Duoneb) Rt Stephany 3 Ml Nebu INH 04/19/24 16:31 Q4HRRT PRN WHEEZING Alprazolam 0.5 mg 03/24/24 21:00 03/24/24 22:33 Alprazolam 0.25 Mg Tablet PO 03/29/24 20:59 Not Given HS ALEX Amlodipine Besylate 5 mg 03/19/24 18:00 03/25/24 08:39 Amlodipine Besylate 5 Mg Tablet PO 04/18/24 17:59 Not Given QDAY ALEX Gabapentin 200 mg/ Gabapentin 800 mg 03/26/24 09:00 600 mg PO 04/25/24 08:59 DAILY ALEX Morphine Sulfate 1 mg 03/22/24 10:33 03/24/24 21:36 Morphine Sulf Inj 10 Mg/Ml Vial IVP 03/27/24 10:32 1 mg Q4HR PRN Administration Pain 7-10 Trazodone HCl 100 mg 03/22/24 21:00 03/24/24 21:30 Trazodone Hcl 50 Mg Tablet PO 04/18/24 20:59 100 mg HS ALEX Administration Trimethoprim/Sulfamethoxazole 1 tab 03/25/24 21:00 Trimethoprim/Sulfa 160/800 Ds Tablet PO 03/27/24 12:00 BID ALEX Plan Assessment 68-year-old male with past medical history of hypertension and anxiety was admitted on 03/18/2024 due to right second and third toe dry gangrene. #Right second and third toe dry gangrene, s/p amputation 2/3/partial 5 toe (Post operative day 5) #Severe peripheral artery disease #Leukocytosis-resolved ? Patient initially came in due to discoloration of his toes. - Initial foot x-ray did not show any fractures ?Arterial duplex showed severe PAD ?Abdomen CTA runoff showed severe PAD with 90% stenosis of right femoral as well as popliteal artery stenosis. ? Culture from right foot wound grew GNR's ? Blood cultures have been negative in the first 24 hours ? Patient has leukocytosis of 13.3 today likely reactive - Patient underwent amputation of second, third, and part of the fifth toe of the right foot on 03/20/2024 - Blood Cx negative -Wound Cx grew GNR Patient will require vascular surgery consult as an outpatient on discharge. Plan: ? ID on consult, appreciate recs - Continuing with Bactrim 800-160 BID - Continue wound care ? Physical therapy evaluated, pending SNF placement #Hypoosmolar hyponatremia-resolved ? Patient came in with sodium of 121. Sodium today 135 ? Received IV fluids in the ER #Normocytic hypochromic anemia ? Hemoglobin on admission was 12.9 and currently 12.3 ? Could be due to hemodilution versus iron deficiency - Ferritin normal Plan: ? Will transfuse hemoglobin less than 7 ? Will continue to monitor #Hx of hypertension ? Restart patient's amlodipine 5 mg daily #Hx of anxiety Pt has been on Xanax for years now We have not resumed a majority of his home medicines Will resume these and see how patients responds Plan: - Resumed homoe trazodone and gabapentin #Health Maintenance Disposition: Med surg DVT prophylaxis: SCDs GI prophylaxis: None indicated at this time Diet: Carb consistent CODE STATUS: Full Patient seen and care discussed with my senior resident, Dr. Brewer , and my attending physician, Dr. Ximena Weston, PGY-1 L Mr King is a 68 year old male admitted for dry gangrene of RT second and third digits. He is s/p amputation of 3rd, 4th digits and partial 5th toe. Today is post-op day 5, pain is well tolerated, minimal discharge noted. Bandage is otehrwise intact and well wrapped. Will get wound care and bandage change today. Anticipate discharge in 24 hours to SNF for rehab and strength training. Dispo: Pending insurance authorization. Patient examined and case discussed with the team including attending physician. Note reviewed, I agree with the care plan as documented. - Jah Brewer MD, PGY 2
[2024-03-25 20:00] VITALS: BP 144/92; PULSE 103; RESP 17; TEMP 37.1; O2SAT 96
[2024-03-25] MEDS: traZODone HCL 50 MG TABLET 100 MG PO (21:30)
[2024-03-25] MEDS: TRIMETHOPRIM/SULFA 160/800 DS TABLET 1 TAB PO (21:31)
[2024-03-26] VITALS: BP 95/78; PULSE 97; RESP 17; TEMP 37.1; O2SAT 98
[2024-03-26] MEDS: HYDROcodone/APAP 5/325 TABLET 1 TAB PO (02:27)
[2024-03-26 04:00] VITALS: BP 142/78; PULSE 117; RESP 18; TEMP 37.3; O2SAT 94
[2024-03-26 06:24] LABS: Basophils % (Auto) 0 % (0-2.5); Eosinophils # (Auto) 0.2 Thou/mm3 (0.0-0.5); Eosinophils % (Auto) 2 % (0-10); Hematocrit 35.7 % (41.0-53.0); Hemoglobin 12.1 g/dL (13.5-16.0); Immature Granulocytes % (Auto) 0 % (0-0); Immature Granulocytes Auto 0.03 Thou/mm3 (0.00-0.00); Lymphocytes # (Auto) 0.5 Thou/mm3 (1.0-4.8); Lymphocytes % (Auto) 6 % (10-50); Mean Corpuscular HGB Conc 33.9 g/dl (31.0-37.0); Mean Corpuscular Hemoglobin 29.9 pg (25.0-35.0); Mean Corpuscular Volume 88 fL (80-100); Monocytes # (Auto) 0.5 Thou/mm3 (0.0-0.8); Monocytes % (Auto) 5 % (0-12); Neutrophils % (Auto) 87 % (37-80); Nucleated Red Blood Cell % 0 /100 WBC (0); RDW Standard Deviation 43.2 fL (35.1-43.9); Red Blood Count 4.05 Miln/mm3 (4.50-5.90); White Blood Count 9.2 Thou/mm3 (3.8-10.6)
[2024-03-26 07:03] LABS: Alanine Aminotransferase 23 U/L (10-49); Albumin, Serum 3.8 gm/dL (3.4-4.8); Albumin/Globulin Ratio 1.3 (1.2-2.2); Alkaline Phosphatase 66 U/L (46-116); Anion Gap 11 (7-16); Aspartate Amino Transferase 22 U/L (0-34); BUN/Creatinine Ratio 21 Ratio (12-20); Bilirubin,Total 0.6 mg/dL (0.3-1.2); Blood Urea Nitrogen 17 mg/dL (9-23); Calcium 9.3 mg/dL (8.3-10.6); Calcium (Corrected) 9.5 mg/dL (8.5-10.1); Carbon Dioxide 23.1 mMol/L (20.0-31.0); Chloride 97 mMol/L (98-107); Creatinine (Component) 0.8 mg/dL (0.6-1.3); Estimated Creatinine Clearance 73.9 mL/min (>60); Globulin 2.9 gm/dL (2.3-3.5); Glucose 139 mg/dL (74-106); Osmolality,Calculated 266 (275-295); Potassium 4.7 mMol/L (3.4-5.1); Sodium 131 mMol/L (136-145); Total Protein 6.7 gm/dL (5.7-8.2); eGFR > 60 See Note
[2024-03-26 08:00] VITALS: BP 135/76; PULSE 106; RESP 19; TEMP 37.2; O2SAT 96
[2024-03-26 08:23] VITALS: BP 135/76; PULSE 106
[2024-03-26] MEDS: GABAPENTIN 200 MG, GABAPENTIN 600 MG 800 MG PO (08:23)
[2024-03-26] MEDS: amLODIPine BESYLATE 5 MG TABLET PO (08:23)
[2024-03-26] MEDS: TRIMETHOPRIM/SULFA 160/800 DS TABLET 1 TAB PO (08:23)
[2024-03-26 12:00] VITALS: BP 142/72; PULSE 106; RESP 19; TEMP 37.2; O2SAT 95
[2024-03-26 12:03] LABS: Platelet Count 126 Thou/mm3 (140-440)
--- NOTE | 2024-03-26 14:07 | ESDS_ITS ---
<Statement entered by Joanie Bueno MD - 04/02/24 11:49> I reviewed above note and agree with findings and plans. I have also personally examined the patient with medicine team and went over assessment and plan with medical team including internal medicine nurse practitioner and resident physician. Planned Discharge Date 03/26/24 DS: Providers Provider Date of admission: 03/19/24 01:30 Primary care physician: Hayden Singh MD Admitting Provider: Kendall Easley MD Attending Provider on Admission: Joanie Bueno MD Consults: 03/20/24 09:12 Consult to General Surgery Routine Comment: Consulting Provider: Janine Harrison 03/21/24 14:05 Referral Wound Care Routine Comment: 03/22/24 12:34 Referral Physical Therapy Stat Comment: Required for DC today. Physician Instructions: 03/25/24 08:36 Consult to Infectious Diseases Routine Comment: Consulting Provider: Bryce Anna Attending Provider on DC: Nura Hunter MD Discharging Provider: Nura Hunter MD DS: Diagnosis Problem List Completed Was Problem List Reviewed/Reconciled?: Yes Hospital Course Hospital Course Hospital course: Patient is a 68 years old male with past medical history of hypertension and anxiety presented to ED on 03/18/2024 with chief complaint of worsening darkening of right second and third toe, was found to have dry gangrene of right second and third toe. Arterial duplex showed severe PAD. Abdomen CTA showed severe PAD with 90% stenosis of right femoral as well as popliteal artery stenosis. He was admitted to the hospital, started on IV doxycycline and Zosyn and general surgery was consulted. On 03/20/2024 he underwent amputation of the second, third and part of the fifth toe on the right foot without complications. During hospital stay patient sustained fall when trying to stand up from the bed without significant injuries. Wound cultures grew resistant citrobacter and enterobacter. Infectious disease was consulted for appropriate antibiotic management. He is stable for discharge today to SNF. Take Bactrim 1 tab BID for 3 days. Take Buspar up to twice a day for anxiety in place of Xanax. Follow up with PCP, wound care clinic and general surgery within 2 weeks. Follow up with vascular surgery after discharge. #Right second and third toe dry gangrene, s/p amputation 2/3/partial 5 toe (Post operative day 6). #Severe peripheral artery disease. #Leukocytosis, resolved. #Hypoosmolar hyponatremia, resolved. #Normocytic hypochromic anemia. #Hx of hypertension. #Hx of anxiety. Plan of care discussed with attending Dr. Bueno. Nura Hunter MD, PGY 2. Disclaimer: This note was dictated by speech recognition. Minor errors in teacher dramatics may be present due to voice recognition software. Time Spent with Patient Time attestation: Total time spent providing and/or coordinating discharge services: 40 min Exam Vital Signs Temp Pulse Resp BP Pulse Ox O2 Del Method O2 Flow Rate 98.9 F 106 H 19 142/72 H 95 Room Air 3 03/26/24 12:03/26/24 12:03/26/24 12:03/26/24 12:03/26/24 12:03/26/24 12:03/20/24 17:50 Narrative Exam Gen: Well-developed and well-nourished. HEENT: NCAT, PERRLA, EOMI, MMM, anicteric conjunctivae. CVS: normal S1 and S2. RRR. No M/R/G. Resp: CTA B/L. No rhonchi, rales, crackles or wheezing. Abd: soft, non-tender, non-distended. BS+ in all 4 quadrants. MSK: Good ROM in BUE & BLE. No edema or rash. Right foot wrapped in clean and dry dressing with some mild swelling. Neuro: CN II-XII grossly intact. Strength 5/5 in BUE & BLE. Alert and oriented x3. Psych: appropriate mood and affect. Discharge Plan Plan Patient Disposition: Xfer Skilled Nsg Fac (SNF) Disposition Comment: [facility] Care Plan Goals: Please follow-up with your PCP within 1 week of discharge. Recommended to follow up at [facility] on 03/25/24. Please get referral for vascular surgeon thierry. Please follow-up with general surgeon Dr. Jean within 1 to 2-week of discharge You have been started on: We are giving you a small course of antibiotics (sulfamethoxazole and trimethoprim), take one tonight, two the following day and one the last day for a total of four tablets for three days. The antibiotic is called sulfamethoxazole and trimethoprim. Naloxone 4 Mg per actuation spray as needed for opioid overdose Continue taking all other medicines as prescribed We recommend to take Buspar (Buspirone) up to twice a day for anxiety in place of Xanax. If you still need to use Xanax, we recommend further evaluation by your primary care doctor. Recommended to return back to emergency department if your symptoms persists or worsens Prescriptions/Referrals Prescriptions/Med Rec: New naloxone [Narcan] 4 mg/actuation spray,non-aerosol 4 mg intranasal Q3M PRN (Reason: opioid overdose) Qty: 2 0RF Rx Instructions: spray 1 dose into ONE nostril; alternate nostrils w each dose until help arrives sulfamethoxazole-trimethoprim 800-160 mg tablet 1 tab PO BID Qty: 4 0RF Rx Instructions: Take one tablet tonight, twice a day the following day and one last tablet the last day for a total of three days buspirone 5 mg tablet 5 mg PO BID Qty: 60 0RF Rx Instructions: Take 2 tablets, once in the morning and once in the evening for anxiety Continued alprazolam 0.5 mg tablet 0.5 mg PO QHS PRN (Reason: Pain, Severe) Rx Instructions: 1 tablet TID as needed for pain gabapentin 800 mg tablet 800 mg PO QDAY losartan 25 mg tablet 25 mg PO QDAY montelukast 10 mg tablet 10 mg PO QDAY albuterol sulfate 2.5 mg/0.5 mL solution for nebulization 10 mg inhalation Q4H MDD 22.5 PRN (Reason: Pain) trazodone 100 mg tablet 100 mg ONCE PM Patient Comments: take 1 tablet by mouth at bedtime hydrocodone-acetaminophen 7.5-325 mg tablet 7.5 tab PO [id number] PRN (Reason: Pain) Patient Comments: take 1 tablet by mouth three times a day if needed for pain Referrals: Janine Harrison MD [Physician] - Hayden Singh MD [Primary Care Provider] - Patient/Caregiver Discharge Instructions Discharge Activity: activity as tolerated Other Discharge Activity Instructions:: 1) Follow up at [facility], [address] [place] [address]. Call [phone] for appointment. 2) Wound care to right foot. Keep dressing clean and dry in between dressing changes. Ambulate using only the heel of your foot. Monitor for any fevers, increasing pain, redness, foul smell or active bleeding to site. If any of these occur please see your Primary MD or return to ED. -Wash hands with soap and water. -Gently remove old dressing, saturate with wound cleanser spray to help loosen gauze. -Cleanse site with wound cleanser spray and gently pat dry. -Wash hands again -Cover open wound with adaptic gauze. -Layer with dry gauze than secure with gauze wrap. -Change every other day and as needed for falling off We recommend to take Buspar (Buspirone) up to twice a day for anxiety in place of Xanax. If you still need to use Xanax, we recommend further evaluation by your primary care doctor. Education Materials: Wound Care Dc, Preventing Surgical Site Infections, Diabetes PAD, Wound Dressing Change Steps Print Language: Cymraes Stand Alone Forms: Camille Award Info., Patient Portal Info Letter Discharge Order Discharge Orders: Discharge (Routine); Ordered 03/25/24 Ordered By: Nura Hunter Quality Discharge Quality Measures VTE prophylaxis
--- NOTE | 2024-03-26 15:13 | PC.SS ---
Follow up note: SS spoke to [facility] and they just need a copy of d/c orders to provide to insurance co. SS sent through [employer]. Possible d/c today
[2024-03-26 16:00] VITALS: BP 125/70; PULSE 113; RESP 18; TEMP 37.2; O2SAT 96
[2024-03-26] MEDS: ACETAMINOPHEN 325 MG TABLET 650 MG PO (16:10)
--- NOTE | 2024-03-26 19:25 | PC.NURSE ---
Report given to receiving nurse Ariela RODRÍGUEZ at [facility].
== END 2024-03-26 19:23 | disposition skilled nursing facility (03) | DRG 256 ==
LOC: SERX 03-19 00:58 → SERHOLD 03-19 06:01 → S3SX 03-19 17:25
PROVIDERS: Physician Assistant; Student in an Organized Health Care Education/Training Program; Surgery; Admitting Provider Internal Medicine; Emergency Provider Emergency Medicine; PCP Family Medicine; Visit Provider Internal Medicine
PROC: 0Y6R0Z0 Detachment at Right 2nd Toe, Complete, Open Approach (ICD-10-PCS; CPT 28820; principal; 2024-03-20 16:00)
DX: E11.52 Type 2 diabetes mellitus with diabetic peripheral angiopathy with gangrene (principal); E87.1 Hypo-osmolality and hyponatremia; L03.115 Cellulitis of right lower limb; Z16.30 Resistance to unspecified antimicrobial drugs; I70.261 Atherosclerosis of native arteries of extremities with gangrene, right leg; E11.40 Type 2 diabetes mellitus with diabetic neuropathy, unspecified; E86.1 Hypovolemia; D50.9 Iron deficiency anemia, unspecified; F41.9 Anxiety disorder, unspecified; I10 Essential (primary) hypertension; J45.909 Unspecified asthma, uncomplicated; B96.89 Other specified bacterial agents as the cause of diseases classified elsewhere; E78.5 Hyperlipidemia, unspecified; Z28.310 Unvaccinated for COVID-19; Z79.899 Other long term (current) drug therapy; Z60.2 Problems related to living alone
CPT/HCPCS: 36415; 71045; 73630; 75635; 80048; 80053; 80061; 81001; 82728; 83036; 83605; 83615; 83690; 83735; 83880; 84100; 84145; 84443; 84484; 85025; 85610; 85730; 87040; 87070; 87077; 87086; 87186; 87205; 87811; 93005; 93926; 93970; 94762; 96365; 96366; 96367; 96368; 97162; 99291; A4217; A4649; J1885; J2060; J2270; J2371; J2543; J2704; J3010; J3475; J3490; J7030; J7050; Q9967; A9270; J1805

== ENCOUNTER → 2024-04-09 | Outpatient (CLI) | payer OTHER, MEDICAID, SELFPAY | END | disposition home or self-care (01) | LOC: SWHD 12:47 | PROVIDERS: PCP Hospitalist; Referring Provider Hospitalist; Visit Provider Student in an Organized Health Care Education/Training Program | DX: S91.104A Unspecified open wound of right lesser toe(s) without damage to nail, initial encounter (principal); X58.XXXA Exposure to other specified factors, initial encounter; L97.512 Non-pressure chronic ulcer of other part of right foot with fat layer exposed; I10 Essential (primary) hypertension; I73.9 Peripheral vascular disease, unspecified | CPT/HCPCS: 99213; G0463 ==

== ENCOUNTER → 2024-04-26 | Outpatient (CLI) | payer OTHER, MEDICAID, SELFPAY ==
[2024-04-26 13:26] LABS: Anion Gap 8 (7-16); BUN/Creatinine Ratio 17 Ratio (12-20); Blood Urea Nitrogen 12 mg/dL (9-23); Calcium 8.9 mg/dL (8.3-10.6); Carbon Dioxide 24.9 mMol/L (20.0-31.0); Chloride 103 mMol/L (98-107); Creatinine (Component) 0.7 mg/dL (0.6-1.3); Glucose 100 mg/dL (74-106); Osmolality,Calculated 271 (275-295); Potassium 4.2 mMol/L (3.4-5.1); Sodium 136 mMol/L (136-145); eGFR > 60 See Note
== END | disposition home or self-care (01) ==
LOC: SLDO 12:27
PROVIDERS: PCP Registered Nurse; Referring Provider Registered Nurse; Visit Provider Registered Nurse
DX: I10 Essential (primary) hypertension (principal)
CPT/HCPCS: 36415; 80048

== ENCOUNTER → 2024-05-07 | Outpatient (CLI) | payer OTHER, MEDICAID, SELFPAY | END | disposition home or self-care (01) | PROVIDERS: PCP Hospitalist; Referring Provider Hospitalist; Visit Provider Student in an Organized Health Care Education/Training Program | DX: S91.104A Unspecified open wound of right lesser toe(s) without damage to nail, initial encounter (principal); X58.XXXA Exposure to other specified factors, initial encounter; T81.89XA Other complications of procedures, not elsewhere classified, initial encounter; L97.512 Non-pressure chronic ulcer of other part of right foot with fat layer exposed; I10 Essential (primary) hypertension; I73.9 Peripheral vascular disease, unspecified | CPT/HCPCS: 99213; A9270; G0463 ==

== ENCOUNTER → 2024-05-21 | Outpatient (CLI) | payer OTHER, SELFPAY | END | disposition home or self-care (01) | LOC: SWHD 14:02 | PROVIDERS: PCP Hospitalist; Referring Provider Hospitalist; Visit Provider Student in an Organized Health Care Education/Training Program | DX: S91.104A Unspecified open wound of right lesser toe(s) without damage to nail, initial encounter (principal); X58.XXXA Exposure to other specified factors, initial encounter; T81.89XA Other complications of procedures, not elsewhere classified, initial encounter; L97.512 Non-pressure chronic ulcer of other part of right foot with fat layer exposed; I10 Essential (primary) hypertension; I73.9 Peripheral vascular disease, unspecified | CPT/HCPCS: 11044; 11047 ×3; A9270 ==

== ENCOUNTER → 2024-05-30 | Outpatient (CLI) | payer OTHER, SELFPAY | END | disposition home or self-care (01) | LOC: SWHD 13:25 | PROVIDERS: PCP Ophthalmology; Referring Provider Ophthalmology; Visit Provider Student in an Organized Health Care Education/Training Program | DX: S91.104A Unspecified open wound of right lesser toe(s) without damage to nail, initial encounter (principal); X58.XXXA Exposure to other specified factors, initial encounter; T81.89XA Other complications of procedures, not elsewhere classified, initial encounter; L97.512 Non-pressure chronic ulcer of other part of right foot with fat layer exposed; I10 Essential (primary) hypertension; I73.9 Peripheral vascular disease, unspecified | CPT/HCPCS: 11043; 11046 ×2; A9270 ==

== ENCOUNTER → 2024-06-04 | Outpatient (CLI) | payer OTHER, MEDICAID, SELFPAY | END | disposition home or self-care (01) | PROVIDERS: PCP Hospitalist; Referring Provider Hospitalist; Visit Provider Student in an Organized Health Care Education/Training Program | DX: T81.89XA Other complications of procedures, not elsewhere classified, initial encounter (principal); L97.514 Non-pressure chronic ulcer of other part of right foot with necrosis of bone; I10 Essential (primary) hypertension; I73.9 Peripheral vascular disease, unspecified | CPT/HCPCS: 11043; A9270 ==

== ENCOUNTER → 2024-06-13 | Outpatient (CLI) | payer OTHER, SELFPAY | END | disposition home or self-care (01) | LOC: SWHD 10:38 | PROVIDERS: PCP Hospitalist; Referring Provider Hospitalist; Visit Provider Surgery | DX: T81.89XA Other complications of procedures, not elsewhere classified, initial encounter (principal); L97.514 Non-pressure chronic ulcer of other part of right foot with necrosis of bone; I10 Essential (primary) hypertension; I73.9 Peripheral vascular disease, unspecified | CPT/HCPCS: 17250; A9270 ==

== ENCOUNTER → 2024-06-20 | Outpatient (CLI) | payer MEDICARE, SELFPAY | END | disposition home or self-care (01) | LOC: SWHD 10:45 | PROVIDERS: PCP Hospitalist; Referring Provider Hospitalist; Visit Provider Student in an Organized Health Care Education/Training Program | DX: T81.89XA Other complications of procedures, not elsewhere classified, initial encounter (principal); L97.514 Non-pressure chronic ulcer of other part of right foot with necrosis of bone; I10 Essential (primary) hypertension; I73.9 Peripheral vascular disease, unspecified | CPT/HCPCS: 17250; 11043; 11046 ×3; A9270 ==

== ENCOUNTER → 2024-07-04 | Outpatient (CLI) | payer OTHER, SELFPAY | END | disposition home or self-care (01) | LOC: SWHD 11:10 | PROVIDERS: PCP Hospitalist; Referring Provider Hospitalist; Visit Provider Student in an Organized Health Care Education/Training Program | DX: T81.89XA Other complications of procedures, not elsewhere classified, initial encounter (principal); L97.512 Non-pressure chronic ulcer of other part of right foot with fat layer exposed; I10 Essential (primary) hypertension; I73.9 Peripheral vascular disease, unspecified | CPT/HCPCS: 97597; 97598 ×8; A9270 ==